=== PATIENT | male | born 1995 | race Caucasian/White ===

== ENCOUNTER 2017-08-27 02:30 | Inpatient (IN) | payer MEDICAID ==
[2017-08-27] MEDS ORDERED: ACETAMINOPHEN 325 MG TAB PO PRN (03:07)
[2017-08-27] MEDS ORDERED: MAGNESIUM HYDROXIDE 30 ML UDCUP PO PRN (03:07)
[2017-08-27] MEDS ORDERED: LORazepam 0.5 MG TAB PO PRN ×2 (03:07→13:34)
[2017-08-27] MEDS ORDERED: MAG HYDROX/AL HYDROX/SIMETH 30 ML UDCUP PO PRN (03:08)
[2017-08-27] MEDS ORDERED: OLANZapine 5 MG TAB PO PRN ×2 (03:08→13:35)
[2017-08-27] MEDS: NICOTINE POLACRILEX 2 MG GUM B PRN ×6 (13:35→23:22)
--- NOTE | 2017-08-27 13:44 | BCON ---
[f rep st] BEHAVIORAL HEALTH CONSULTATION INTERNAL MEDICINE CONSULTATION DATE OF CONSULTATION: 08/27/2017 REFERRING PHYSICIAN: Dr. Vences REASON FOR REFERRAL: Medical clearance for inpatient behavioral health stay. HISTORY OF PRESENT ILLNESS: This patient was brought to the [facility] Emergency Department on an M1 hold from a mental health clinic where he was noted to be floridly psychotic with homicidal and suicidal ideation. He had been noncompliant with his psychiatric medications. He was evaluated by the mental health team and transfer was arranged to [facility] inpatient rehabilitation. He currently has no acute complaints. PAST MEDICAL HISTORY: He denies any history of medical illnesses. He has a diagnosis of schizoaffective disorder. PAST SURGICAL HISTORY: He denies any surgeries. MEDICATIONS: He was prescribed Seroquel, but apparently has been noncompliant for several weeks. ALLERGIES: There are no known drug allergies. SOCIAL HISTORY: He lives in an apartment with a [employer]-supplied therapeutic roommate. He is a smoker. He has not attempted to quit smoking. He has occasional substance abuse including marijuana, LSD, and alcohol. FAMILY HISTORY: Noncontributory for the purpose of this evaluation. REVIEW OF SYSTEMS: A 10-point review of systems was conducted and was negative. PHYSICAL EXAM: VITAL SIGNS: Blood pressure is 132/60, heart rate is 78, respiratory rate 16, oxygen saturation is 96% on room air, temperature is 36.6 degrees centigrade. His weight is 63.5 kg for a body mass index of 22.6. GENERAL: This is a somewhat unkempt man. Appears his chronologic age. Wearing hospital scrubs. Cooperative and in no acute distress. HEENT: Extraocular movements are intact. Pupils are equal, round, reactive to light. Mucous membranes are moist. Dentition is in good condition. NECK: Supple. HEART: Regular rate and rhythm with no murmurs, rubs, or gallops. LUNGS: Clear to auscultation bilaterally. ABDOMEN: Benign. EXTREMITIES: There is no cyanosis or clubbing. NEUROLOGIC: He is alert. Orientation was not tested. Cranial nerves 2-12 are grossly intact. There is no focal weakness and sensation is intact to light touch. LABORATORY STUDIES: From the [facility] emergency department. CBC and BMP were normal. Urine tox screen was negative for any substances of abuse. ASSESSMENT/RECOMMENDATIONS: 1. Tobacco dependence syndrome. He was encouraged to quit smoking. 2. Otherwise normal exam. I see no medical contraindications to this patient's continued stay in the inpatient behavioral health unit or to any psychiatric medications or procedures. Thank you very much for including me in the care of this patient and please do not hesitate to contact me or the hospitalist service should there be need for further medical evaluation. /[id number]/MODL MTDD
[2017-08-27] MEDS ORDERED: RISPERIDONE 2 MG ODT TAB SL PRN (13:52)
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
[2017-08-27] MEDS: RISPERIDONE 2 MG ODT TAB SL SCH (20:06)
[2017-08-28] MEDS: NICOTINE POLACRILEX 2 MG GUM B PRN ×3 (07:38→17:45)
[2017-08-28] MEDS: RISPERIDONE 2 MG ODT TAB SL SCH ×2 (08:09→20:07)
--- NOTE | 2017-08-28 11:45 | SOAPPROG ---
SOAP Progress Note Assessment/Plan: Assessment: Schizophrenia Violent threats prior to admission Patient admitted on M-1 for paranoia, AH, disorganization, agitation, and violent threats. Patient has a history of prior psychiatric hospitalizations and [place]; was non-compliant with antipsychotic medications despite extensive support from [facility]. Plan: Short Term Certification Court Ordered Medication petition submitted Monitor behavior, psychotic symptoms, risk of violence Continue Risperdal Mtab 2mg SL BID 08/28/17 11:46 Subjective: CC: "Better" Patient unable to explain recent events or reason for hospitalizations. Denies sending emails to [employer], sending threatening email to father, or threatening [facility] staff. Denies feeling stiff or slow. Reports sleeping well. Denies paranoia. Endorses AH of multiple voices but unable to explain content, denies command AH. Denies feeling hopeless or suicidal. Denies feeling agitated or violent. Objective: Vital Signs Temp Pulse Resp BP Pulse Ox 36.4 C 86 16 124/69 H 96 08/28/17 01:41 08/28/17 01:41 08/28/17 01:41 08/28/17 01:41 08/28/17 01:41 Laboratory Results 08/28/17 06:50 Tired WM, resting in bed. Speech RRR. No cogwheel rigidity. Mood 'better.' Affect restricted. Thoughts brief with poverty of detail/content. Denies SI or HI or paranoia but unable to explain recent symptoms. Endorses AH, describes multiple voices but unable to explain content, denies command AH. Unable to explain diagnosis or risks/benefits of medication. No insight. Questionable judgment. Patient was agitated and disorganized and irritable last night on unit but cooperative with scheduled Risperdal Mtab BID and got PRN ativan 1mg this AM prior to blood draw. BMP WNL (glucose 78); LFts WNL; TG 208, HDL 43, LDL 69, TSH 1.9, HgbA1c 5.2. - Time Spent With Patient Time Spent With Patient: 15 minutes - Pending Discharge Pending Discharge Within 24 Hours: No Pending Discharge Within 48 Hours: No ICD10 Worksheet Patient Problems: Problems Problem Status Onset Nicotine dependence Acute Noncompliance Acute Schizophrenia Acute Thoughts of violence Acute
[2017-08-29] MEDS: NICOTINE POLACRILEX 2 MG GUM B PRN ×4 (07:46→19:19)
[2017-08-29] MEDS: RISPERIDONE 2 MG ODT TAB SL SCH ×2 (07:46→20:52)
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
[2017-08-30] MEDS: RISPERIDONE 2 MG ODT TAB SL SCH ×2 (09:05→18:17)
[2017-08-30] MEDS: OMEGA-3 FATTY ACIDS 1,000 MG CAP PO SCH (09:05)
[2017-08-30] MEDS: NICOTINE POLACRILEX 2 MG GUM B PRN (11:47)
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
[2017-08-30] MEDS: NICOTINE 14 MG/24 HR PATCH TD SCH (14:56)
[2017-08-31] MEDS: OMEGA-3 FATTY ACIDS 1,000 MG CAP PO SCH (08:06)
[2017-08-31] MEDS: RISPERIDONE 2 MG ODT TAB SL SCH ×2 (08:07→21:07)
[2017-08-31] MEDS: NICOTINE 14 MG/24 HR PATCH TD SCH (08:07)
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
[2017-08-31] MEDS ORDERED: NICOTINE POLACRILEX 2 MG GUM B ONE (21:22)
[2017-09-01] MEDS: OMEGA-3 FATTY ACIDS 1,000 MG CAP PO SCH (08:28)
[2017-09-01] MEDS: RISPERIDONE 2 MG ODT TAB SL SCH ×2 (08:28→19:04)
[2017-09-01] MEDS: NICOTINE 14 MG/24 HR PATCH TD SCH (08:28)
--- NOTE | 2017-09-01 09:05 | SOAPPROG ---
SOAP Progress Note Assessment/Plan: Assessment: Schizophrenia Violent threats prior to admission Mild elevation in Triglycerides Patient admitted on M-1 for paranoia, AH, disorganization, agitation, and violent threats. Patient has a history of prior psychiatric hospitalizations and [place]; was non-compliant with antipsychotic medications prior to admission despite extensive support from [facility] program. Patient denies past suicide attempts or violence toward others or access to a gun. Patient appears calm and denies dangerous thoughts but has poor insight and negative symptoms. Mild EPS with Risperidone 4mg/day Plan: Short Term Certification Court Ordered Medication petition submitted Monitor behavior, psychotic symptoms, risk of violence Reduce Risperdal Mtab 2mg QHS Start Invega Sustenna 156mg IM, first dose in AM Safety precautions (15 minute checks) and Assault Awareness precaution Fish Oil daily Coordinate discharge planning with Tyra 09/01/17 09:04 Subjective: CC: "Great" Patient unable to explain reasons for admission or diagnosis. Agrees to continue medication but wants discharge. Agrees to Invega Sustenna injection. Reports feeling tired and slowed 'off and on.' Denies stiffness. Denies severe mood swings or agitation. Objective: Vital Signs Temp Pulse Resp BP Pulse Ox 36.4 C 68 16 110/59 L 95 09/01/17 06:00 09/01/17 06:00 09/01/17 06:00 09/01/17 06:00 09/01/17 06:00 Laboratory Results 08/28/17 06:50 Alert WM. Mild cogwheeling, slowing. Speech RRR few words. Mood 'great' affect restricted. Thoughts organized but poverty of detail. Denies SI or HI. Denies AH or paranoia. Limited/poor insight. Questionable judgment. Staff report patient quiet, isolative on unit. - Time Spent With Patient Time Spent With Patient: 15 minutes - Pending Discharge Pending Discharge Within 24 Hours: No Pending Discharge Within 48 Hours: No ICD10 Worksheet Patient Problems: Problems Problem Status Onset Nicotine dependence Acute Noncompliance Acute Schizophrenia Acute Thoughts of violence Acute
[2017-09-01] MEDS ORDERED: RISPERIDONE 2 MG ODT TAB SL PRN (14:00)
[2017-09-01] MEDS: hydrOXYzine HCL 25 MG TAB PO PRN (19:04)
[2017-09-02] MEDS: OMEGA-3 FATTY ACIDS 1,000 MG CAP PO SCH (07:42)
[2017-09-02] MEDS: NICOTINE 14 MG/24 HR PATCH TD SCH (07:42)
--- NOTE | 2017-09-02 10:35 | SOAPPROG ---
SOAP Progress Note Assessment/Plan: Assessment: Schizophrenia Violent threats prior to admission Mild elevation in Triglycerides Patient admitted on M-1 for paranoia, AH, disorganization, agitation, and violent threats. Patient has a history of prior psychiatric hospitalizations and [place]; was non-compliant with antipsychotic medications prior to admission despite extensive support from [facility]. Patient denies past suicide attempts or violence toward others or access to a gun. Patient appears calm and denies dangerous thoughts but has poor insight and negative symptoms. Plan: Short Term Certification Patient stipulated for court ordered medications Continue Risperdal Mtab 2mg QHS Hydroxyzine 25mg [id number] PRN anxiety or insomnia or EPS Start Invega Sustenna 156mg IM, first dose today 09/02/17 Safety precautions (15 minute checks) and Assault Awareness precaution Fish Oil daily Coordinate discharge planning with [facility] 09/02/17 10:31 Subjective: CC: "Alright" Patient denies stiffness or tremors or feeling slow. Denies feeling sedated or having difficulty with urination or constipation. Agrees to Invega Sustenna injections but wants to be discharged. Unable to explain reasons for hospitalization. Denies paranoia about police or government or chemical poisonings. Denies AH. Denies violent or suicidal thoughts. Agreeable to work with [facility] after hospital discharge. Objective: Vital Signs Temp Pulse Resp BP Pulse Ox 36.4 C 68 16 110/59 L 95 09/01/17 06:00 09/01/17 06:00 09/01/17 06:00 09/01/17 06:00 09/01/17 06:00 Laboratory Results 08/28/17 06:50 Tired WM. Calm and cooperative. Affect briefly irritable. Thoughts briefly organized with poverty of detail/content. Denies SI or HI or AH or paranoia. Mood 'alright'. Speech RRR, few words. Limited/poor insight. Judgment questionable. Staff report patient slept 8 hours, took Hydroxyzine 25mg at bedtime. Patient isolative, briefly irritable on unit without dangerous behaviors or statements. - Time Spent With Patient Time Spent With Patient: 10 minutes - Pending Discharge Pending Discharge Within 24 Hours: No Pending Discharge Within 48 Hours: No ICD10 Worksheet Patient Problems: Problems Problem Status Onset Nicotine dependence Acute Noncompliance Acute Schizophrenia Acute Thoughts of violence Acute
[2017-09-02] MEDS ORDERED: PALIPERIDONE PALMITATE 156 MG/ML SYR IM ONE (11:00)
[2017-09-02] MEDS: NICOTINE POLACRILEX 2 MG GUM B PRN ×3 (17:15→22:02)
[2017-09-02] MEDS: RISPERIDONE 2 MG ODT TAB SL SCH (18:56)
[2017-09-02] MEDS ORDERED: hydrOXYzine HCL 25 MG TAB PO SCH (21:00)
[2017-09-03] MEDS: hydrOXYzine HCL 25 MG TAB PO PRN (05:22)
[2017-09-03] MEDS: NICOTINE POLACRILEX 2 MG GUM B PRN (06:58)
[2017-09-03] MEDS: OMEGA-3 FATTY ACIDS 1,000 MG CAP PO SCH (08:05)
--- NOTE | 2017-09-03 08:07 | SOAPPROG ---
SOAP Progress Note Assessment/Plan: Assessment: Schizophrenia Violent threats prior to admission Mild elevation in Triglycerides Patient admitted on M-1 for paranoia, AH, disorganization, agitation, and violent threats. Patient has a history of prior psychiatric hospitalizations and [place]; was non-compliant with antipsychotic medications prior to admission despite extensive support from [facility] program. Patient denies past suicide attempts or violence toward others or access to a gun. Patient appears calm and denies dangerous thoughts but has poor insight. Plan: Short Term Certification Patient stipulated for court ordered medications Continue Risperdal Mtab 2mg QHS Hydroxyzine 25mg [id number] PRN anxiety or insomnia or EPS Patient received first Invega Sustenna 156mg IM on 09/02/17 Safety precautions (15 minute checks) and Assault Awareness precaution Fish Oil daily Coordinate discharge planning with [facility], planned discharge 09/09/17 after 2nd Invega Sustenna injection 09/03/17 08:07 Subjective: CC: "ready to go" Patient reports wanting discharge home to apartment. Agreeable to continue Invega Sustenna injections as an outpatient and cooperate with [facility] team. REports he feels that he is 'innocent, just a sacrifice so you can make money off me by keeping me here.' Denies paranoia regarding chemicals, poisonings. Denies feeling irritable or having violent thoughts. Denies stiffness, tremors , or slowing. Denies feeling hopeless or suicidal. Objective: Vital Signs Temp Pulse Resp BP Pulse Ox 36.2 C 76 16 114/75 95 09/03/17 06:00 09/03/17 06:00 09/03/17 06:00 09/03/17 06:00 09/03/17 06:00 Laboratory Results 08/28/17 06:50 ALert WM. Speech RRR. Mood 'ready to go.' Affect briefly irritable. Thoughts briefly organized with limited information. No tremors or weakness. Some paranoid content 'I'm an innocent victim being sacrified so you can make money.' No insight. Questionable judgment. Staff report patient compliant with Invega Sustenna injection yesterday and SL Risperdal last night. Took PRN Hydroxyzine 25mg for anxiety yesterday. Isolative to room, able to attend some groups. - Time Spent With Patient Time Spent With Patient: 15 minutes - Pending Discharge Pending Discharge Within 24 Hours: No Pending Discharge Within 48 Hours: No ICD10 Worksheet Patient Problems: Problems Problem Status Onset Nicotine dependence Acute Noncompliance Acute Schizophrenia Acute Thoughts of violence Acute
[2017-09-03] MEDS: NICOTINE 14 MG/24 HR PATCH TD SCH (08:14)
[2017-09-03] MEDS: SODIUM CL NASAL 45 ML BTL EACHNARE PRN (13:23)
[2017-09-03] MEDS: RISPERIDONE 2 MG ODT TAB SL SCH (20:08)
[2017-09-03] MEDS: CETIRIZINE 10 MG TAB PO SCH (20:09)
[2017-09-04] MEDS: NICOTINE 14 MG/24 HR PATCH TD SCH (09:07)
[2017-09-04] MEDS: OMEGA-3 FATTY ACIDS 1,000 MG CAP PO SCH (09:07)
[2017-09-04] MEDS: NICOTINE POLACRILEX 2 MG GUM B PRN ×2 (09:54→12:22)
[2017-09-04] MEDS: SODIUM CL NASAL 45 ML BTL EACHNARE PRN (10:07)
--- NOTE | 2017-09-04 10:34 | SOAPPROG ---
SOAP Progress Note Assessment/Plan: Assessment: Schizophrenia Violent threats prior to admission Mild elevation in Triglycerides Patient admitted on M-1 for paranoia, AH, disorganization, agitation, and violent threats. Patient has a history of prior psychiatric hospitalizations and [place]; was non-compliant with antipsychotic medications prior to admission despite extensive support from [facility] program. Patient denies past suicide attempts or violence toward others or access to a gun. Patient appears irritable today with some paranoia but denies violent or suicidal thoughts, has poor insight. Plan: Short Term Certification Patient stipulated for court ordered medications Increase Risperdal Mtab 4mg QHS Hydroxyzine 25mg [id number] PRN anxiety or insomnia or EPS Patient received first Invega Sustenna 156mg IM on 09/02/17 Plan second Invega Sustenna injection 156mg IM on Friday Safety precautions (15 minute checks) and Assault Awareness precaution Fish Oil daily Coordinate discharge planning with [facility] Team, planned discharge 09/09/17 after 2nd Invega Sustenna injection Requested healthcare technician and pharmacist enroll patient in [facility] [employer] Patient Assistance Program Provided education about Schizophrenia Monitor irritability 09/04/17 10:35 Subjective: CC: "I want to get the shot outpatient" Patient reports sleeping well but feeling agitated due to not wanting to be in the hospital. Reports concerns about being poisoned. Unable to give details. Denies violent or suicidal thoughts. Denies stiffness or tremors. Denies feeling hopeless or suicidal. Agrees to work with [facility] team regarding discharge planning. Objective: Vital Signs Temp Pulse Resp BP Pulse Ox 36.2 C 76 16 114/75 95 09/03/17 06:00 09/03/17 06:00 09/03/17 06:00 09/03/17 06:00 09/03/17 06:00 Laboratory Results 08/28/17 06:50 Alert WM. No stiffness or tremors. Speech RRR, brief yelling. Irritable affect. Mood 'fine.' Thoughts briefly organized with poverty of detail. Some paranoia about being poisoned. Denies SI or HI. Denies AH. Poor insight. Staff report patient slept 7 hours, took PRN Hydroxyzine for anxiety; briefly irritable and paranoid at times but able to attend some groups. - Time Spent With Patient Time Spent With Patient: 15 minutes - Pending Discharge Pending Discharge Within 24 Hours: No Pending Discharge Within 48 Hours: No ICD10 Worksheet Patient Problems: Problems Problem Status Onset Nicotine dependence Acute Noncompliance Acute Schizophrenia Acute Thoughts of violence Acute
[2017-09-04] MEDS: CETIRIZINE 10 MG TAB PO SCH (18:36)
[2017-09-04] MEDS: RISPERIDONE 2 MG ODT TAB SL SCH (18:37)
[2017-09-05] MEDS: OMEGA-3 FATTY ACIDS 1,000 MG CAP PO SCH (10:42)
[2017-09-05] MEDS: NICOTINE 14 MG/24 HR PATCH TD SCH (10:43)
[2017-09-05] MEDS: NICOTINE POLACRILEX 2 MG GUM B PRN ×2 (10:48→12:32)
--- NOTE | 2017-09-05 12:56 | SOAPPROG ---
SOAP Progress Note Assessment/Plan: Assessment: Schizophrenia Violent threats prior to admission Mild elevation in Triglycerides Patient admitted on M-1 for paranoia, AH, disorganization, agitation, and violent threats. Patient has a history of prior psychiatric hospitalizations and [place]; was non-compliant with antipsychotic medications prior to admission despite extensive support from [facility] program. Patient appears calm but no insight. Plan: Short Term Certification Patient stipulated for court ordered medications Risperdal Mtab 4mg QHS Hydroxyzine 25mg [id number] PRN anxiety or insomnia or EPS Patient received first Invega Sustenna 156mg IM on 09/02/17 Plan second Invega Sustenna injection 156mg IM on Friday Safety precautions (15 minute checks) and Assault Awareness precaution Fish Oil daily Coordinate discharge planning with [facility] Team, planned discharge 09/09/17 after 2nd Invega Sustenna injection 09/05/17 13:01 Subjective: CC: "I'm OK" Patient reports overall feeling stable. Denies paranoia about poison gas. Denies any thoughts about the Holocaust or Hitler. Denies any violent thoughts toward his father or toward [employer] staff. Denies access to a gun. Reports overall feeling stable. Denies stiffness or tremors or restlessness. Objective: Vital Signs Temp Pulse Resp BP Pulse Ox 36.4 C 52 L 20 87/51 L 94 09/05/17 06:00 09/05/17 06:00 09/05/17 06:00 09/05/17 06:00 09/05/17 06:00 Laboratory Results 08/28/17 06:50 Alert WM. No tremors or weakness. Speech RRR. Mood 'OK.' Affect restricted. Thoughts organized with limited information. Denies SI or HI. Denies AH or paranoia about being poisoned. Denies any plans to hurt father or [employer] staff. Denies access to guns in the community. Insight poor. Judgment questionable. Staff report 9.5 hours. Only attends first 5-10 minutes of groups then leaves. Occasional brief irritability but no dangerous behaviors or statements. Spoke over the phone with Dr. Saxena, psychiatrist in [place]. He reports patient last seen there December 2016. Diagnosed Schizophrenia, past benefit from Invega Sustenna, chronic poor insight, recurrent non-compliance with oral medication. - Time Spent With Patient Time Spent With Patient: 15 minutes - Pending Discharge Pending Discharge Within 24 Hours: No Pending Discharge Within 48 Hours: No ICD10 Worksheet Patient Problems: Problems Problem Status Onset Nicotine dependence Acute Noncompliance Acute Schizophrenia Acute Thoughts of violence Acute
[2017-09-05] MEDS: SODIUM CL NASAL 45 ML BTL EACHNARE PRN (13:55)
[2017-09-05] MEDS: LORazepam 0.5 MG TAB PO PRN (14:46)
[2017-09-05] MEDS: CETIRIZINE 10 MG TAB PO SCH (20:10)
[2017-09-05] MEDS: RISPERIDONE 2 MG ODT TAB SL SCH (20:11)
[2017-09-06] MEDS: NICOTINE 14 MG/24 HR PATCH TD SCH (07:56)
[2017-09-06] MEDS: OMEGA-3 FATTY ACIDS 1,000 MG CAP PO SCH (08:23)
[2017-09-06] MEDS: NICOTINE POLACRILEX 2 MG GUM B PRN ×4 (09:13→19:10)
[2017-09-06] MEDS: LORazepam 0.5 MG TAB PO PRN (12:41)
[2017-09-06] MEDS: hydrOXYzine HCL 25 MG TAB PO PRN (13:55)
[2017-09-06] MEDS: SODIUM CL NASAL 45 ML BTL EACHNARE PRN (15:31)
--- NOTE | 2017-09-06 16:57 | SOAPPROG ---
SOAP Progress Note Assessment/Plan: Assessment: Per Dr. Saravia's notes: Assessment/Plan: Assessment: Schizophrenia Violent threats prior to admission Mild elevation in Triglycerides Patient admitted on M-1 for paranoia, AH, disorganization, agitation, and violent threats. Patient has a history of prior psychiatric hospitalizations and [place]; was non-compliant with antipsychotic medications prior to admission despite extensive support from [facility]. Patient appears calm but no insight. Plan: Short Term Certification Patient stipulated for court ordered medications Risperdal Mtab 4mg QHS Hydroxyzine 25mg [id number] PRN anxiety or insomnia or EPS Patient received first Invega Sustenna 156mg IM on 09/02/17 Plan second Invega Sustenna injection 156mg IM on Friday Safety precautions (15 minute checks) and Assault Awareness precaution Fish Oil daily Coordinate discharge planning with [facility] Team, planned discharge 09/09/17 after 2nd Invega Sustenna injection 09/06/17 16:[address] 2. Stipulated to [facility] 3. 1st Invega injection on 09/02/17 4. Next Invega IM on 09/09/17 5. Less paranoid and psychotic Subjective: Met with patient, reviewed chart and d/w staff. Patient presents with more elevated mood and pressured speech than last weekend. However, he denies hallucinations and appears less paranoid. He wrote "I'm bored" on his arm with black marker. Patient is talking about wanting to go back to film school in [place] for music production. MD and CC asks how long he plans to stay in [place] and receive treatment at [facility]. He says, "maybe a couple months...I don't know, maybe my dad will make me stay here forever." Objective: Vital Signs Temp Pulse Resp BP Pulse Ox 36.4 C 95 14 127/79 H 96 09/06/17 06:00 09/06/17 06:00 09/06/17 06:00 09/06/17 06:00 09/06/17 06:00 Laboratory Results 08/28/17 06:50 MSE: Mood: "Great" but "bored" Affect: Elevated TP: Loose TC: Grandiose, no SI/HI, denies any hallucinations, less paranoid Insight/Judgment: Poor - Time Spent With Patient Time Spent With Patient: 20" - Pending Discharge Pending Discharge Within 24 Hours: No Pending Discharge Within 48 Hours: No ICD10 Worksheet Patient Problems: Problems Problem Status Onset Nicotine dependence Acute Noncompliance Acute Schizophrenia Acute Thoughts of violence Acute
[2017-09-06] MEDS: RISPERIDONE 2 MG ODT TAB SL SCH (18:53)
[2017-09-06] MEDS: CETIRIZINE 10 MG TAB PO SCH (18:54)
[2017-09-07] MEDS: NICOTINE 14 MG/24 HR PATCH TD SCH (07:13)
[2017-09-07] MEDS: OMEGA-3 FATTY ACIDS 1,000 MG CAP PO SCH (08:30)
[2017-09-07] MEDS: NICOTINE POLACRILEX 2 MG GUM B PRN ×2 (10:50→21:00)
[2017-09-07] MEDS: LORazepam 0.5 MG TAB PO PRN (12:33)
--- NOTE | 2017-09-07 14:09 | SOAPPROG ---
SOAP Progress Note Assessment/Plan: Assessment: Per Dr. Saravia's notes: Assessment/Plan: Assessment: Schizophrenia Violent threats prior to admission Mild elevation in Triglycerides Patient admitted on M-1 for paranoia, AH, disorganization, agitation, and violent threats. Patient has a history of prior psychiatric hospitalizations and [place]; was non-compliant with antipsychotic medications prior to admission despite extensive support from [facility]. Patient appears calm but no insight. Plan: Short Term Certification Patient stipulated for court ordered medications Risperdal Mtab 4mg QHS Hydroxyzine 25mg [id number] PRN anxiety or insomnia or EPS Patient received first Invega Sustenna 156mg IM on 09/02/17 Plan second Invega Sustenna injection 156mg IM on Friday Safety precautions (15 minute checks) and Assault Awareness precaution Fish Oil daily Coordinate discharge planning with [facility] Team, planned discharge 09/09/17 after 2nd Invega Sustenna injection 09/06/17 16:53 1. On STC 2. Stipulated to COM 3. 1st Invega injection on 09/02/17 4. Next Invega IM on 09/09/17 5. Less paranoid and psychotic 09/07/17 14:06 1. STC and COM 2. Will receive Invega Sustenna on Friday 3. Likely to d/c after Invega injection, f/u with [facility] Subjective: Met with patient, reviewed chart and d/w staff. When MD met with patient, he was polite, cooperative and pleasant. He says "thank you sir" several times. However, staff report he has been very irritable with SOC and FOC. His SOC came to visit last night and patient became angry and told her to "fuck off" when she left. He had got angry during phone conversation with his FOC and his FOC hung up on him. Patient took Ativan and hydroxyzine for agitation PRN yesterday , but has not needed any today. Objective: Vital Signs Temp Pulse Resp BP Pulse Ox 36.4 C 111 H 16 121/72 H 95 09/06/17 06:00 09/07/17 08:00 09/07/17 08:00 09/07/17 08:00 09/07/17 08:00 Laboratory Results 08/28/17 06:50 MSE: Mood: "Fine" Affect: Euthymic w/ MD, but has been angry and irritable with family TP: Linear TC: No SI/HI, denies any psychotic sxs Insight/ Judgment: poor - Time Spent With Patient Time Spent With Patient: 20" - Pending Discharge Pending Discharge Within 24 Hours: No Pending Discharge Within 48 Hours: No ICD10 Worksheet Patient Problems: Problems Problem Status Onset Nicotine dependence Acute Noncompliance Acute Schizophrenia Acute Thoughts of violence Acute
[2017-09-07] MEDS: RISPERIDONE 2 MG ODT TAB SL SCH (20:49)
[2017-09-07] MEDS: CETIRIZINE 10 MG TAB PO SCH (20:49)
[2017-09-08] MEDS: OMEGA-3 FATTY ACIDS 1,000 MG CAP PO SCH (08:50)
[2017-09-08] MEDS: NICOTINE 14 MG/24 HR PATCH TD SCH (08:50)
[2017-09-08] MEDS: LORazepam 0.5 MG TAB PO PRN ×2 (10:48→18:37)
--- NOTE | 2017-09-08 12:00 | SOAPPROG ---
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 Patient has a history of prior psychiatric hospitalizations and [place]; was non-compliant with antipsychotic medications prior to admission despite extensive support from [facility] program. Patient is sleeping well on unit and calm in groups but has explosive agitation when discussing diagnosis, treatment plan and has been hostile and yelling on phone with father and was profane and agitated over the weekend while meeting with sister. Patient has no insight. Plan: Short Term Certification Patient stipulated for court ordered medications Increase Risperdal Mtab 1mg QAM and 4mg QHS Patient received first Invega Sustenna 156mg IM on 09/02/17 Increase/change Invega Sustenna injection 234mg IM on Friday Safety precautions (15 minute checks) and Assault Awareness precaution Education about Schizophrenia Coordinate discharge planning with [facility] Team Discussed with patient that he will need to have a calm family meeting with sister to review discharge planning prior to discharge. 09/08/17 12:01 Subjective: CC: "I don't fucking need to be here" Patient reports sleeping well. Denies mood swings or agitation but yells at this M.D. Denies stiffness or slowing. Unable to explain why he was yelling on phone with father or profane and agitated with sister over the weekend. Unwilling to try Depakote for agitation 'I took it before, it slowed me down and made my mind .' Denies paranoia and AH and violent threats prior to or during admission. Reports he doesn't believe he has a mental illness and shouldn't be diagnosed with Schizophrenia 'you should take it off my medical record.' Reports he is willing to take medications after discharge 'only so I can get out of here.' Agrees to have a discharge family meeting with [facility] staff and sister. Objective: Vital Signs Temp Pulse Resp BP Pulse Ox 36.4 C 88 16 113/58 L 97 09/06/17 06:00 09/07/17 20:51 09/07/17 20:51 09/07/17 20:51 09/07/17 20:51 Laboratory Results 08/28/17 06:50 Alert WM. Initially calm in group. Speech RRR, brief yelling with agitation. Mood 'upset because I don't need to be here.' Affect irritable and angry at times. Thoughts briefly organized with limited detail. Denies SI or HI or AH or paranoia. Reports he doesn't believe he has a mental illness, denies AH or paranoia or violent thoughts prior to or during admission. No insight. Questionable judgment. Staff report over weekend patient was yelling and screaming at father on phone numerous times; was irritable and profane during visit by sister. Staff report patient slept 8 hours overnight, attending groups. - Time Spent With Patient Time Spent With Patient: 15 minutes - Pending Discharge Pending Discharge Within 24 Hours: No Pending Discharge Within 48 Hours: No ICD10 Worksheet Patient Problems: Problems Problem Status Onset Intermittent explosive disorder Acute Nicotine dependence Acute Noncompliance Acute Thoughts of violence Acute Schizophrenia Acute
[2017-09-08] MEDS: NICOTINE POLACRILEX 2 MG GUM B PRN ×2 (13:44→16:15)
[2017-09-08] MEDS: RISPERIDONE 1 MG ODT TAB SL PRN (14:53)
--- NOTE | 2017-09-08 17:11 | HOSPPROG ---
Hospitalist Progress Note Assessment/Plan: STI screening- revwd exposure risks and sxs of common STIs, recommended condom use for prevention. HIV/Hep C/RPR/gc/ct ordered- all negative. Consider oral and anal swabs in future depending upon risk assessment. Please contact hospitalist service with any further concerns. Thank you for allowing us to participate in his care. Subjective: Request for STI screening. He says he has never had anal or vaginal intercourse with men or women, but he is very concerned and 'just wants to be screened...because it is around' He denies oral lesions, pain with urination, penile discharge or lesions. He declines genital exam today. Objective: Vital Signs Temp Pulse Resp BP Pulse Ox 97.6 F 88 16 113/58 L 97 09/06/17 06:00 09/07/17 20:51 09/07/17 20:51 09/07/17 20:51 09/07/17 20:51 Laboratory Results 08/28/17 06:50 - Physical Exam Constitutional: other (cooperative) ICD10 Worksheet Patient Problems: Problems Problem Status Onset Intermittent explosive disorder Acute Nicotine dependence Acute Noncompliance Acute Schizophrenia Acute Thoughts of violence Acute
[2017-09-08] MEDS: CETIRIZINE 10 MG TAB PO SCH (20:56)
[2017-09-08] MEDS: RISPERIDONE 2 MG ODT TAB SL SCH (20:57)
[2017-09-09] MEDS ORDERED: RISPERIDONE 1 MG ODT TAB SL SCH (09:00)
[2017-09-09] MEDS: OMEGA-3 FATTY ACIDS 1,000 MG CAP PO SCH (10:10)
[2017-09-09] MEDS: NICOTINE POLACRILEX 2 MG GUM B PRN ×5 (10:11→18:29)
[2017-09-09] MEDS: NICOTINE 14 MG/24 HR PATCH TD SCH (10:14)
[2017-09-09] MEDS ORDERED: PALIPERIDONE PALMITATE 234 MG/1.5 ML SYR IM ONE (11:00)
[2017-09-09] MEDS ORDERED: PALIPERIDONE PALMITATE 156 MG/ML SYR IM ONE (11:00)
--- NOTE | 2017-09-09 11:08 | SOAPPROG ---
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 Patient has a history of prior psychiatric hospitalizations and [place]; was non-compliant with antipsychotic medications prior to admission despite extensive support from [facility] program. Patient has no insight but agrees to Invega Sustenna injection. Patient was agitated and yelling at father and insurance defense attorney on phone and sister during visit, 09/06-09/08, but appears more calm today. Plan: Short Term Certification Patient stipulated for court ordered medications, but now requesting hearing scheduled 09/10 @ 3:30PM to obtain discharge Continue Risperdal Mtab 1mg QAM and 4mg QHS Patient received first Invega Sustenna 156mg IM on 09/02/17 Patient agrees to Invega Sustenna injection 234mg IM today 09/09/17 Safety precautions (15 minute checks) and Assault Awareness precaution Education about Schizophrenia Discussed with patient that he will need to have a calm family meeting with sister and [facility] to review discharge planning prior to discharge. 09/09/17 11:08 Subjective: CC: "Upset that I'm here" Patient reports sleeping well. Reports past benefit from Invega Sustenna injections and willing to take but doesn't want to be in the hospital. Denies that he was yelling repeatedly on phone to father and com writer over past 4 days. Denies yelling profanity at sister over weekend. Reports he doesn't believe he has mental illness and only willing to take Invega injection to facilitate discharge. 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 Objective: Vital Signs Temp Pulse Resp BP Pulse Ox 36.7 C 84 17 133/83 H 96 09/08/17 19:08 09/08/17 19:08 09/08/17 19:08 09/08/17 19:08 09/08/17 19:08 Laboratory Results 08/28/17 06:50 alert WM, ambulatory without tremors or weakness or slowing. Speech RRR, brief yelling. Mood 'upset that I'm here.' Affect briefly irritable. Thoughts briefly organized with little detail. Some grandiosity regarding opening a record studio with father. No insight. Denies SI or HI or AH. poor judgment. Staff report patient slept 10 hours. Briefly irritable with staff but cooperative with medication and groups. - Time Spent With Patient Time Spent With Patient: 15 minutes - Pending Discharge Pending Discharge Within 24 Hours: No Pending Discharge Within 48 Hours: No ICD10 Worksheet Patient Problems: Problems Problem Status Onset Intermittent explosive disorder Acute Nicotine dependence Acute Noncompliance Acute Schizophrenia Acute Thoughts of violence Acute
[2017-09-09 11:20] LABS: HEPATITIS C ANTIBODY TOTAL NEGATIVE (NEGATIVE); HIV TYPE 1 AND 2 NEGATIVE (NEGATIVE)
[2017-09-09 11:59] LABS: GC AMPLIFICATION GENPROBE NEGATIVE (NEGATIVE)
[2017-09-09] MEDS: SODIUM CL NASAL 45 ML BTL EACHNARE PRN (12:03)
[2017-09-09] MEDS: LORazepam 0.5 MG TAB PO PRN (13:25)
[2017-09-09] MEDS: RISPERIDONE 2 MG ODT TAB SL SCH ×2 (19:09→20:41)
[2017-09-09] MEDS: CETIRIZINE 10 MG TAB PO SCH (19:09)
[2017-09-09] MEDS: RISPERIDONE 1 MG ODT TAB SL PRN (20:41)
--- NOTE | 2017-09-10 08:32 | SOAPPROG ---
SOAP Progress Note Assessment/Plan: Assessment: Schizophrenia Intermittent Explosive DO versus Schizoaffective DO bipolar type Violent threats prior to admission Mild elevation in Triglycerides - on fish oil No insight Patient admitted on M-1 for paranoia, AH, disorganization, agitation, and violent threats. Patient has a history of prior psychiatric hospitalizations and [place]; was non-compliant with antipsychotic medications prior to admission despite extensive support from [facility]. Patient was agitated and yelling at father and religion department chair on phone and sister during visit, 09/06-09/08. Plan: Short Term Certification and court ordered medication hearing today 09/10/17 Patient received Invega Sustenna injections 09/02/17 and 09/09/17 Reduce Risperdal Mtab 2mg QHS Education about Schizophrenia and benefit of treatment 09/10/17 08:28 Subjective: CC: "don't want to be here" Patient unable to explain why he is in the hospital. Reports he doesn't think he has mental illness and doesn't want psychiatric medication. Reports he has not worked a steady job 'ever.' Reports father is paying for his apartment but unable to explain how he would obtain housing if not for his support other than 'maybe work in a [employer] shop.' Denies paranoia or agitation or violent thoughts toward father or family or [facility] staff. Reports he is willing to take Invega Sustenna injections on an outpatient basis. Refused Risperdal last night due to feeling slowed. Willing to take a lower dose as part of a taper. Denies stiffness or tremors. Objective: Vital Signs Temp Pulse Resp BP Pulse Ox 36.7 C 82 14 114/64 96 09/09/17 13:26 09/09/17 20:48 09/09/17 20:48 09/09/17 20:48 09/09/17 20:48 Laboratory Results 08/28/17 06:50 Alert WM, brief irritable affect. Mood 'don't want to be here.' Speech RRR, few words. Thoughts briefly organized but illogical at times with minimal information. Denies SI or HI or AH or paranoia. Poor insight/judgment. Staff report patient refused HS Risperdal yesterday but cooperated with Invega Sustenna injection. - Time Spent With Patient Time Spent With Patient: 10 minutes - Pending Discharge Pending Discharge Within 24 Hours: No Pending Discharge Within 48 Hours: No ICD10 Worksheet Patient Problems: Problems Problem Status Onset Intermittent explosive disorder Acute Nicotine dependence Acute Noncompliance Acute Schizophrenia Acute Thoughts of violence Acute
[2017-09-10] MEDS: NICOTINE 14 MG/24 HR PATCH TD SCH (10:47)
[2017-09-10] MEDS: OMEGA-3 FATTY ACIDS 1,000 MG CAP PO SCH (10:47)
[2017-09-10] MEDS: NICOTINE POLACRILEX 2 MG GUM B PRN ×4 (10:47→20:39)
[2017-09-10] MEDS ORDERED: LORazepam 2 MG/ML INJ IM PRN (17:55)
[2017-09-10] MEDS: RISPERIDONE 2 MG ODT TAB SL SCH (19:33)
[2017-09-10] MEDS: CETIRIZINE 10 MG TAB PO SCH (19:34)
[2017-09-10] MEDS: LORazepam 0.5 MG TAB PO PRN (21:14)
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
[2017-09-11] MEDS ORDERED: hydrOXYzine HCL 25 MG TAB PO PRN (11:05)
[2017-09-11] MEDS: OMEGA-3 FATTY ACIDS 1,000 MG CAP PO SCH (11:06)
[2017-09-11] MEDS ORDERED: LORazepam 2 MG/ML INJ IM PRN (11:06)
[2017-09-11] MEDS ORDERED: OLANZapine 10 MG/2 ML VIAL IM PRN (11:07)
[2017-09-11] MEDS: NICOTINE 14 MG/24 HR PATCH TD SCH (11:08)
[2017-09-11] MEDS: NICOTINE POLACRILEX 2 MG GUM B PRN ×2 (14:23→17:51)
[2017-09-11] MEDS: CETIRIZINE 10 MG TAB PO SCH (18:55)
[2017-09-11] MEDS: RISPERIDONE 2 MG ODT TAB SL SCH (18:56)
[2017-09-11] MEDS: LORazepam 0.5 MG TAB PO PRN (22:09)
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
[2017-09-12] MEDS: NICOTINE 14 MG/24 HR PATCH TD SCH (11:59)
[2017-09-12] MEDS: OMEGA-3 FATTY ACIDS 1,000 MG CAP PO SCH (12:09)
[2017-09-12] MEDS: NICOTINE POLACRILEX 2 MG GUM B PRN ×2 (12:09→13:09)
[2017-09-12] MEDS: RISPERIDONE 2 MG ODT TAB SL SCH (19:15)
[2017-09-12] MEDS: CETIRIZINE 10 MG TAB PO SCH (19:16)
[2017-09-12] MEDS: LORazepam 0.5 MG TAB PO PRN (19:18)
[2017-09-13] MEDS: NICOTINE 14 MG/24 HR PATCH TD SCH (09:19)
[2017-09-13] MEDS: OMEGA-3 FATTY ACIDS 1,000 MG CAP PO SCH (11:55)
[2017-09-13] MEDS: NICOTINE POLACRILEX 2 MG GUM B PRN ×2 (12:52→20:48)
[2017-09-13] MEDS: CETIRIZINE 10 MG TAB PO SCH (16:10)
[2017-09-13] MEDS: RISPERIDONE 2 MG ODT TAB SL SCH (20:47)
[2017-09-13] MEDS: LORazepam 0.5 MG TAB PO PRN (20:49)
--- NOTE | 2017-09-14 08:15 | SOAPPROG ---
SOAP Progress Note Assessment/Plan: Assessment: 21yo SWM w/SZA d/o on STC and c.o.meds, admitted with severe paranoia and CAH to kill others 09/13/17 15:49 per staff, slept >9hr w/e cc t/w pt's father who was trying to decide where pt would go after d/c, cc informed FOC that [facility] is where STC/COM could be continued. see note for details. On eval, pt wearing knit had, reports doing "well", attended group which was "good". affect generally appropriate to content of interview but dismissive of any MH issues. responses brief but appropriate. denied any SI or thoughts to harm others, denied any AH/VH and no evid of delusional thoughts. little insight into reason for admission or reason for medications. states he is in hosp "b/c I was not taking my meds and things were not going well", states he does not like meds b/c "they don't help" and feels s/e of "drowsy" which is why he is taking po dose at , but meds DO help only with "getting out of the psych jeffery". admits other family members think meds help with his "voices" (makes quotation sandra gesture with his hands as he says 'voices') but maintains he does not have voices, rather he has "conscious innuendo". denies any physical complaints. PLAN: continue current meds as per court order plan d/c sometime during week if continues calm, cooperative, to [place] [facility]. Objective: Vital Signs Temp Pulse Resp BP Pulse Ox 36.8 C 82 12 122/78 H 96 09/13/17 20:00 09/13/17 20:00 09/13/17 20:00 09/13/17 20:00 09/13/17 08:00 Laboratory Results 08/28/17 06:50 - Time Spent With Patient Time Spent With Patient: 25min - Pending Discharge Pending Discharge Within 24 Hours: No Pending Discharge Within 48 Hours: No ICD10 Worksheet Patient Problems: Problems Problem Status Onset Intermittent explosive disorder Acute Nicotine dependence Acute Noncompliance Acute Schizophrenia Acute Thoughts of violence Acute
[2017-09-14] MEDS: NICOTINE 14 MG/24 HR PATCH TD SCH (10:46)
[2017-09-14] MEDS: OMEGA-3 FATTY ACIDS 1,000 MG CAP PO SCH (10:46)
[2017-09-14] MEDS: RISPERIDONE 2 MG ODT TAB SL SCH (17:08)
[2017-09-14] MEDS: LORazepam 0.5 MG TAB PO PRN (17:09)
[2017-09-14] MEDS: CETIRIZINE 10 MG TAB PO SCH (17:09)
--- NOTE | 2017-09-15 01:17 | SOAPPROG ---
SOAP Progress Note Assessment/Plan: Assessment: 21yo SWM w/SZA d/o on STC and c.o.meds, admitted with severe paranoia and CAH to kill others 09/13/17 15:49 per staff, slept >9hr w/e cc t/w pt's father who was trying to decide where pt would go after d/c, cc informed FOC that [facility] is where STC/COM could be continued. see note for details. On eval, pt wearing knit had, reports doing "well", attended group which was "good". affect generally appropriate to content of interview but dismissive of any MH issues. responses brief but appropriate. denied any SI or thoughts to harm others, denied any AH/VH and no evid of delusional thoughts. little insight into reason for admission or reason for medications. states he is in hosp "b/c I was not taking my meds and things were not going well", states he does not like meds b/c "they don't help" and feels s/e of "drowsy" which is why he is taking po dose at , but meds DO help only with "getting out of the psych jeffery". admits other family members think meds help with his "voices" (makes quotation sandra gesture with his hands as he says 'voices') but maintains he does not have voices, rather he has "conscious innuendo". denies any physical complaints. PLAN: continue current meds as per court order plan d/c sometime during week if continues calm, cooperative, to CO [facility]. prob need to reinforce to father the importance of continuing STC/ COM in community due to pt hx of n/c and poor insight 09/14/17 14:10 pt slept 9hr. no behav issues per staff on eval, cooperative, casually dressed, nml speech rate/vol, walking robles during interview stating he was ready for d/c, "bored", denied feeling restless or need to pace. reports fine with IM med "as long as I'm not on a mood stabilizer". feels "fine". affect controlled, appropr range. denied any AH/vh or any thoughts to harm himself or anyone else. thoughts seemed reality-based. no overt delusional thoughts or psychosis noted. no RIS. i/j limited. denies med s/e. denied physical c/o. hoping to d/c as soon as tomorrow if possible. states he is going to groups. PLAN: cont on STC/COM plan d/c early in week if continues stable. monitor for akathisia Objective: Vital Signs Temp Pulse Resp BP Pulse Ox 36.6 C 89 12 145/80 H 96 09/14/17 22:13 09/14/17 22:13 09/14/17 22:13 09/14/17 22:13 09/14/17 08:00 Laboratory Results 08/28/17 06:50 - Time Spent With Patient Time Spent With Patient: 15min - Pending Discharge Pending Discharge Within 24 Hours: No Pending Discharge Within 48 Hours: No ICD10 Worksheet Patient Problems: Problems Problem Status Onset Intermittent explosive disorder Acute Nicotine dependence Acute Noncompliance Acute Schizophrenia Acute Thoughts of violence Acute
[2017-09-15] MEDS: NICOTINE POLACRILEX 2 MG GUM B PRN ×3 (10:36→18:35)
[2017-09-15] MEDS: OMEGA-3 FATTY ACIDS 1,000 MG CAP PO SCH (10:37)
[2017-09-15] MEDS: NICOTINE 14 MG/24 HR PATCH TD SCH (10:39)
--- NOTE | 2017-09-15 12:18 | SOAPPROG ---
SOAP Progress Note Assessment/Plan: Assessment: Schizophrenia Intermittent Explosive DO versus Schizoaffective DO bipolar type Violent threats prior to admission Mild elevation in Triglycerides - on fish oil Patient admitted on M-1 for paranoia, AH, disorganization, agitation, and violent threats including reporting command AH to get a gun. Patient has a history of prior psychiatric hospitalizations in [place]; was non-compliant with antipsychotic medications prior to admission despite extensive support from [facility]. Patient is calm this AM, improved from previous, denies psychotic symptoms, appears more organized and logical than previous. Plan: Short Term Certification Court Ordered Medication Patient received Invega Sustenna injections 09/02/17 and 09/09/17 Plan next Invega Sustenna injection on/after September 30 2017 Continue Risperdal Mtab 2mg QHS, if refused Olanzapine 5mg IM. Schedule Hydroxyzine 25mg QHS for sleep Continue Ativan 0.5mg TID PRN anxiety, if refused 0.5mg IM Education about Schizophrenia and benefit of treatment Phone conference with father in [place] or sister in [place] to discuss possible transition to [facility] if stable over next two days 09/15/17 12:20 Subjective: CC: "I'm doing good." Patient reports over weekend one visit from [facility] staff 'we played [employer]. ' Reports having good conversation with father over the phone. Reports willingness to go to residential program for monitoring after discharge. Denies violent thoughts or AH over weekend. Denies feeling stiff or restless. Reports social anxiety being around others but denies paranoia that anyone is trying to harm him. Reports sleeping well with PRN lorazepam and scheduled Risperdal. Objective: Vital Signs Temp Pulse Resp BP Pulse Ox 36.6 C 89 12 145/80 H 96 09/14/17 22:13 09/14/17 22:13 09/14/17 22:13 09/14/17 22:13 09/14/17 08:00 Laboratory Results 08/28/17 06:50 Alert WM. Occasional Restless leg movement. Speech RRR. Mood 'better' affect euthymic, mildly anxious. Thoughts organized but poverty of detail or content. Denies violent or homicidal thoughts or any thoughts of getting a gun. Denies SI or hopelessness. Denies paranoia or AH. Insight limited/poor. Judgment questionable. Staff report patient slept 9 hours with HS Lorazepam PRN and scheduled Risperdal Mtab 2mg. - Time Spent With Patient Time Spent With Patient: 15 minutes - Pending Discharge Pending Discharge Within 48 Hours: Yes Pending Discharge Date: 09/17/17 Pending Discharge Time: 11:00 ICD10 Worksheet Patient Problems: Problems Problem Status Onset Intermittent explosive disorder Acute Nicotine dependence Acute Noncompliance Acute Schizophrenia Acute Thoughts of violence Acute
[2017-09-15] MEDS: RISPERIDONE 2 MG ODT TAB SL SCH (20:38)
[2017-09-15] MEDS: hydrOXYzine HCL 25 MG TAB PO SCH (20:38)
[2017-09-15] MEDS: LORazepam 0.5 MG TAB PO PRN (21:43)
[2017-09-16] MEDS: OMEGA-3 FATTY ACIDS 1,000 MG CAP PO SCH (08:51)
[2017-09-16] MEDS: NICOTINE 14 MG/24 HR PATCH TD SCH (08:52)
--- NOTE | 2017-09-16 11:28 | SOAPPROG ---
SOAP Progress Note Assessment/Plan: Assessment: Schizophrenia Intermittent Explosive DO versus Schizoaffective DO bipolar type Violent threats prior to admission Mild elevation in Triglycerides - on fish oil Patient appears improved with very limited insight. Plan: Short Term Certification Court Ordered Medication Patient received Invega Sustenna injections 09/02/17 and 09/09/17 Plan next Invega Sustenna injection on/after September 30 2017 (Q3-4weeks) Continue Risperdal Mtab 2mg QHS Continue Hydroxyzine 25mg QHS for sleep Reduce Ativan 0.25mg QHS PRN insomnia Education about Schizophrenia and benefit of treatment and medication compliance flight operation coordinator will review discharge planning with sister and [facility] Possible discharge tomorrow to [facility] 09/16/17 11:28 Subjective: CC: "I'm OK, ready to go to [facility]." Patient reports sleeping well. Denies agitation or irritability. Reports wanting to go to [facility] for one month then return to apartment. Reports he wants continued support from sister and father. Denies AH or paranoia that he was poisoned. Denies any plans to get a gun or kill or hurt anyone. Reports willingness to take medication after discharge to help with these symptoms: anxiety, trouble sleeping, feeling irritable. Disagrees with diagnosis of severe mental illness 'it is just stress that comes on sometimes.' Denies feeling stiff or slow. Objective: Vital Signs Temp Pulse Resp BP Pulse Ox 36.7 C 86 14 128/72 H 93 09/15/17 13:12 09/15/17 18:04 09/15/17 18:04 09/15/17 18:04 09/15/17 18:04 Laboratory Results 08/28/17 06:50 Alert WM. Ambulatory without tremors. Speech RRR. MOod 'good.' Affect odd, restricted. Thoughts briefly organized with poverty of information/detail. Denies paranoia or AH. Denies fear of father or sister or any thoughts of harming either family or [facility] staff. Denies suicidal ideation or any violent thoughts. Insight - limited, but improved from previous. Judgment appropriate regarding discharge planning. Staff report patient slept 9 hours with HS Risperdal Mtab 2mg; Hydroxyzine 25mg , Lorazepam 0.5mg Staff report patient able to sit quietly thru groups without anxiety or agitation. - Time Spent With Patient Time Spent With Patient: 20 minutes - Pending Discharge Pending Discharge Within 24 Hours: Yes Pending Discharge Within 48 Hours: No Pending Discharge Date: 09/17/17 Pending Discharge Time: 11:00 ICD10 Worksheet Patient Problems: Problems Problem Status Onset Intermittent explosive disorder Acute Nicotine dependence Acute Noncompliance Acute Schizophrenia Acute Thoughts of violence Acute
[2017-09-16] MEDS ORDERED: LORazepam 0.5 MG TAB PO PRN (11:31)
[2017-09-16] MEDS: NICOTINE POLACRILEX 2 MG GUM B PRN (15:00)
[2017-09-16 18:28] VITALS: BP 122/83; PULSE 84; RESP 16; TEMP 97.3; O2SAT 96
[2017-09-16] MEDS: RISPERIDONE 2 MG ODT TAB SL SCH (19:00)
[2017-09-16] MEDS: hydrOXYzine HCL 25 MG TAB PO SCH (19:00)
[2017-09-17] MEDS: NICOTINE 14 MG/24 HR PATCH TD SCH (07:26)
[2017-09-17] MEDS: OMEGA-3 FATTY ACIDS 1,000 MG CAP PO SCH (08:25)
[2017-09-17] MEDS: NICOTINE POLACRILEX 2 MG GUM B PRN (08:25)
--- NOTE | 2017-09-17 09:16 | BDS ---
[f rep st] BEHAVIORAL HEALTH DISCHARGE SUMMARY IDENTIFICATION: This is a 21-year-old single white male who is living in an apartment in [place] supported by his father in [place] and his sister here in [place]. He is unemployed. He has a history of severe mental illness and prior psychiatric hospitalizations. He is in outpatient treatment with [facility] health team as well as Dr. Kali Degroot, a psychiatrist in [place]. REASON FOR ADMISSION: Please review the psychiatric assessment from July. The patient had apparently moved from [place] to [place] in late 2016. He had been prescribed Seroquel for insomnia and schizophrenia and possibly bipolar disorder by his outpatient psychiatrist. He had been noncompliant with this medication. He apparently had been having severe insomnia, anxiety, agitation, paranoia about being harmed, distorted thinking with illogical thoughts about Hitler in the Holocaust. He also reported hearing voices and having command hallucinations to hurt others and possibly get a gun to hurt others. He apparently had been e-mailing his father bizarre and nihilistic e-mails and threatening to harm him as well as sending messages to the [employer]. He also apparently had been making statements about wanting to harm people to the [facility] staff. He was placed on an M-1 hold by [facility] staff. When the patient was admitted to the inpatient unit, the patient had disorganized thinking, paranoid ideas of reference, paranoia that he was being poisoned by multiple chemicals and agencies. He was pale and appeared thin, but had no focal weakness or tremors. He also reported command auditory hallucinations to kill people. He reported multiple auditory hallucinations. He was agitated. He denies suicidal thoughts. He had poor insight, impaired judgment. HOSPITAL COURSE: The patient was admitted on an M1 hold that was filed by his [facility] therapist who was working with him in the community. The patient's outpatient psychiatrist, Dr. Degroot, reported the patient appeared to have schizophrenia or possibly schizoaffective disorder, bipolar type, and had been noncompliant with Seroquel. The patient apparently had a history of approximately 3 psychiatric hospitalizations in [place] for severe mental illness. An outpatient psychiatrist in [place], [place] named Dr. Saxena, reported the patient had previously been stabilized on Invega Sustenna injections and had a history of recurrent non-compliance with oral medication. The patient initially was on Risperdal 2 mg twice a day for stabilization of psychosis. The patient benefited from this medication, but appeared to have slowing, and cogwheeling, and then the dose was later reduced to 2 mg. The patient received Invega Sustenna injection of 156 mg on September 02, 2017. The patient stipulated for court ordered medications and was on a short-term certification. The patient appeared to have worsening symptoms - agitation, explosive anger, illogical thinking, severe hostility - and the Risperdal was then later increased up to 4 mg a day again. The patient then received a 234 mg Invega Sustenna injection on September 09, 2017. After that, the Risperdal was reduced back down to 2 mg at night. The patient had intermittent insomnia and took hydroxyzine 25 mg at bedtime or lorazepam 0.25-1mg for sleep. On the unit, the patient initially had episodic explosive anger toward his sister, toward his father and toward staff; this would involve brief yelling with illogical thinking lasting several minutes at a time. Most of the time, he was quiet, isolative to his room. He had paranoid ideas of reference that agencies or past people that he had encountered in [place] had poisoned him with ricin, cyanide, bromide, or other chemicals which induced his psychiatric disorder. The patient did report prior to admission having fear that his father was putting him through some type of human sacrifice and felt like his father needed to . Prior to discharge, the patient repeatedly denied any plans to harm his father after discharge and reported having a positive relationship with his father. The patient reported intermittent auditory hallucinations, commanding to hurt others, prior to admission and on the day of admission. He also reported prior to admission he had thoughts of getting a gun and killing someone. He was unable to identify who. At one point, he did mention that there was a female that he had known 5 years ago in [place] that he had thoughts of hurting. He was unsure where she was. He said that he thought possibly she was in [place] or [place]. He was unable to explain where she was or how to get a hold of her or locate her as far as our duty to warn; he denied any intent to actually harm this woman. During the hospitalization, the patient repeatedly denied further thoughts to hurt others. He denied plans to get a gun and hurt others. He denied suicidal ideation. The patient did appear to have negative symptoms of schizophrenia regarding illogical thinking, lack of motivation for future self-care or having relationships with other people. He also initially had a lot of social anxiety , would avoid groups, avoid being around staff and was mostly quiet in his room. There were episodes where he had explosive anger and yelling on the phone with his angiographer, with his father and with his sister. He also had an episode where he was screaming and yelling and profane with his sister when she visited when he was not doing well. It was unclear if this was a bipolar spectrum mood disorder or an impulse control disorder, such as Intermittent Explosive Disorder. The patient later changed his mind and wanted to challenge the certification and so there was a court hearing to review the certification. The certification and court-ordered medications were upheld. Prior to discharge, the patient had been calm, pleasant, cooperative with medications, sleeping 9 to 10 hours at night, able to attend groups, was calm and pleasant. He had limited to poor insight into his severe mental illness. He was able to identify that psychiatric medications helped him with sleep, anxiety, irritability and agitation. Discharge planning was complicated by the fact that the patient had poor insight and was unlikely to take oral medications on his own based on this history. The patient had been living in an apartment with daily visits from [facility] staff. However, [facility] staff and the patient's family requested that the patient be on an outpatient certification following discharge to ensure that he receives his long-acting antipsychotic injection. The patient was referred to [facility]. The patient was agreeable to this and agreeable to a plan to step down to [facility] which is a 1 month residential program with daily medication monitoring and supervision here in the [place] area. The patient would be able to get his followup Invega Sustenna injection there as well as monitored Risperdal at bedtime until that next injection. Prior to discharge, the patient had been calm , pleasant, cooperative. He was ambulatory without tremors or weakness. He had been sleeping well at night. His speech was regular rate and rhythm with few words, limited information. He denied thoughts to hurt himself. He denied any violent thoughts or homicidal thoughts. He denied auditory hallucinations. He denied paranoia that he was being poisoned or harmed by anyone on the unit or in the community. He appeared to have a residual paranoia that he had been poisoned in the past prior to his first hospitalization. He was agreeable to be in communication with his sister and father in future. His memory was fair. His insight was limited. His judgment was questionable, but appropriate regarding short-term discharge planning. CONSULTATIONS: The patient had a baseline physical exam by Dr. Denise, on August 27, 2017. He had a followup hospitalist evaluation by Dr. Medina on September 08, 2017, due to concerns that he may have had a sexually transmitted disease. The patient was not found to have any major medical problems. PROCEDURES: None. LABORATORIES PENDING: None. LABORATORY RESULTS: Sodium 144, potassium 4.,5 creatinine 0.9, glucose 78, hemoglobin A1c 5.2, total bilirubin 0.9, AST 39, ALT 31, albumin 4.8. Triglycerides 208, LDL 69, HDL 43. TSH 1.9. His STD testing was negative including a nonreactive RPR, negative chlamydia RNA, negative hepatitis C antibody, negative HIV antibody, negative gonorrhea RNA. DISCHARGE DIAGNOSIS: Schizophrenia, Intermittent Explosive Disorder, rule out schizoaffective disorder, bipolar type, Elevated triglycerides Nicotine use disorder, severe. DISCHARGE MEDICATIONS: [place]-3 fatty acids, fish oil 1000 mg by mouth daily [id number] for hyperlipidemia, nicotine gum 2 mg q.1 hour p.r.n. for nicotine cravings, hydroxyzine 25 mg p.o. at bedtime for insomnia, Lorazepam 0.25 mg by mouth at bedtime p.r.n. for insomnia, Risperdal 2 mg p.o. at bedtime , Invega Sustenna 234 mg injection q.4 weeks. The next injection of this medication is due October 07. This injection can be given up to 1 week early on or after September 30, 2017. DISPOSITION: The patient is leaving the unit with [facility] staff. FOLLOWUP: The patient will be seen by Dr. Conn or another psychiatrist at [facility] for psychiatric medication while residing at [facility]. LEGAL STATUS: The patient was admitted on an M1 hold and then placed on a short -term certification. This physician applied for court-ordered medications. The patient initially stipulated for both, but then contested it and we had a court hearing in which this certification and court-ordered medications were upheld. The short-term certification was originally dated August 27, 2017, and will November 24, 2017. [facility] will continue to hold the certification while the patient is in intensive treatment at [facility]. ADDENDUM: The patient's sister, Juana Munoz's phone number is [phone]. The patient's father's phone number is . /[phone]/MODL MTDD
== END 2017-09-17 09:36 | DRG 885 ==
LOC: BBEH 02:30
PROVIDERS: ADMIT Psychiatry & Neurology Behavioral Neurology & Neuropsychiatry
DX: F20.9 Schizophrenia, unspecified (principal); F17.200 Nicotine dependence, unspecified, uncomplicated; F51.05 Insomnia due to other mental disorder; F63.81 Intermittent explosive disorder; Z91.14 Patient's other noncompliance with medication regimen
CPT/HCPCS: G0472; J2426

== ENCOUNTER 2017-12-05 17:22 | Inpatient (IN) | payer MEDICAID, OTHER ==
--- NOTE | 2017-12-05 18:45 | EDPHY ---
H & P Time Seen by Provider: 12/05/17 18:13 HPI/ROS: CHIEF COMPLAINT: "I am hearing voices" HISTORY OF PRESENT ILLNESS: Patient is a 22-year-old male with a history of schizoaffective disorder currently undergoing treatment who presents emergency department with worsening symptoms. Patient is treated as an outpatient by the [facility] team. Patient is followed by Dr. Conn from Psychiatry. Patient is here with his counseling service. They felt his symptoms are worsening any needs placement to an inpatient treatment facility. He is currently under court order to receive medications. He has been taking his medications. He states he hears voices that are"not friendly."He denies thoughts of wanting to harm himself at this time. Per his therapist, his psychiatrist felt that he should be placed on a hold. REVIEW OF SYSTEMS: My complete review of systems is negative except as mentioned in the HPI. Past Medical/Surgical History: Includes schizoaffective disorder Social history: Patient smokes Smoking Status: Heavy smoker Physical Exam: Vitals noted GENERAL: Well-appearing, in no acute distress, alert. HEENT: Eyes normal to inspection, normal pharynx, no signs of dehydration. NECK: No thyromegaly, no lymphadenopathy, supple. RESPIRATORY: Clear to auscultation bilaterally, no rales, rhonchi or wheezing. CVS: Regular rate and rhythm, no rubs, murmurs, or gallops. ABDOMEN: Soft, nontender, nondistended, no organomegaly. BACK: Normal to inspection, no CVA tenderness. SKIN: Normal color, no rash, warm, dry. No pallor. EXTREMITIES: No pedal edema, no calf tenderness, no Homans sign or cords, no joint swelling. NEURO/PSYCH: Alert and oriented x3, normal mood and affect, normal motor sensory exam. No obvious cranial nerve deficit. Constitutional: Initial Vital Signs Temperature (C) 36.8 C 12/05/17 18:06 Heart Rate 85 12/05/17 18:06 Respiratory Rate 16 12/05/17 18:06 Blood Pressure 122/85 H 12/05/17 18:06 O2 Sat (%) 95 12/05/17 18:06 O2 Delivery Mode Room Air Allergies/Adverse Reactions: No Allergies [NKA] Allergy (Verified 12/05/17 18:04) Home Medications: Medication Instructions Recorded Nicotine Polacrilex [Nicorette gum 2 mg B Q1H PRN gum 09/17/17 (*)] [place]-3 Fatty Acids [Fish Oil 1000 1,000 mg PO DAILY cap 09/17/17 mg (*)] Paliperidone Palmitate [Invega 234 mg IM ONCE #1 syr 09/17/17 Sustenna (*)] Risperidone 2 mg PO HS #30 tablet 09/17/17 [place] Carbonate 12/05/17 Medical Decision Making ED Course/Re-evaluation: In the emergency department I met the patient on arrival. I discussed possible etiologies with the patient. I answered his questions. I discussed the plan. He consented to have laboratory studies drawn. He is placed on an M1 hold. He was made aware. Patient was recheck while here. He was stable. Differential Diagnosis: My differential includes but is not limited to schizoaffective disorder, bipolar disorder, medication noncompliance, electrolyte abnormality, sugar abnormality, mass, malignancy Departure - Departure Clinical Impression: Hallucinations Schizoaffective disorder Qualifiers: Schizoaffective disorder type: other Qualified Code(s): F25.8 - Other schizoaffective disorders Condition: Good Instructions: Hallucinations (ED) Referrals: LELAND WILBURN [Primary Care Provider] - As per Instructions
[2017-12-05 19:17] LABS: PLATELET COUNT 233 10^3/uL (150-400)
[2017-12-06] MEDS ORDERED: ACETAMINOPHEN 325 MG TAB PO PRN (00:30)
[2017-12-06] MEDS ORDERED: MAG HYDROX/AL HYDROX/SIMETH 30 ML UDCUP PO PRN (00:30)
[2017-12-06] MEDS ORDERED: LORazepam 0.5 MG TAB PO PRN (00:30)
[2017-12-06] MEDS ORDERED: MAGNESIUM HYDROXIDE 30 ML UDCUP PO PRN (00:30)
[2017-12-06] MEDS: OLANZapine DISINTEGR 5 MG TAB PO PRN ×2 (01:45→17:41)
[2017-12-06] MEDS: risperiDONE 2 MG TAB PO SCH (09:00)
[2017-12-06] MEDS: LITHIUM CARBONATE ER 300 MG TAB PO SCH (09:00)
[2017-12-06] MEDS ORDERED: hydrOXYzine HCL 25 MG TAB PO PRN (13:18)
--- NOTE | 2017-12-06 14:47 | BAPA ---
[f rep st] ADMISSION PSYCHIATRIC ASSESSMENT DATE OF SERVICE: 12/06/2017 CHIEF COMPLAINT: "Hearing unfriendly voices." HISTORY OF PRESENT ILLNESS: The patient is a 22-year-old man with a history of schizoaffective disorder who arrived to the [facility] ED via private vehicle with his sister. The patient says that he has been hearing voices that are "not friendly." He denies thoughts of wanting to hurt himself or anyone else. According to his outpatient therapists, they recommended the patient be placed on a mental health hold and readmitted to the hospital. The patient says the voices have been telling him to kill himself, but he does not have the intent or plan to act on those thoughts. He says that he feels like he needs help now and wants to come inpatient. The patient is currently receiving services through [facility]. He also had an extension of his short-term certification as well as court ordered involuntary medications, which was the decision made by the court on November 25, which extends the date of his short-term certification and involuntary medications through February 24, 2018. When this MD met with the patient on the inpatient behavioral services unit on , he was lethargic, lying in bed. MD met with the patient with the nurse healthcare manager, Abril, in his room. He was groggy, stated that he came into the hospital because of auditory hallucinations. He said that he was hearing voices that told him to "go to hell" and voices telling him to kill himself. He said he was also seeing gruesome images in his mind's eye. He admits that these were not visual hallucinations. He did not believe that those things were real or that they were happening in reality. He knew that they were just going on in his head. The patient admitted that he has been smoking marijuana recently. He says that he has also been drinking alcohol a couple of times in the last month. He says that he has used marijuana 2-3 times in the last month , most recently was last week. When MD met with the patient, the patient denied that he was experiencing auditory or visual hallucinations at that moment. He gave no outward indication that he was distressed in any way, shape or form. He did not give any evidence of any emotional or psychological disturbance. He was in no acute distress. He was not visibly labile or emotional. He was not fidgety or restless. He was not distracted. The patient 's outward presentation was at odds with his self-reported symptoms. He said that he wanted to "change medications" because he said his medications "are not helping the voices go away." When MD mentioned the fact that the reason for the breakthrough hallucinations and disturbing thoughts may be related to his increased use of mood-altering substances, the patient minimized his use of alcohol and marijuana and did not agree with the physician that stopping his use of those mood altering and cognitively impairing substances might help to diminish some of the symptoms that he reports. The patient said that he wants to be on "new medications." Says he also wants something "different for anxiety." He says that he has developed a tolerance to Ativan and "it is not helping anymore." The patient denied any thoughts, plans or intents to hurt himself or anyone else. MD also spoke with Dr. Lianet Navarro at [facility]. She said that she is no longer the patient's outpatient therapist, that she treated him when he was at [facility], but that the patient sees Dr. Live Conn for medication management now. She said that in her experience, the patient has been very "stable" on his current medication regimen and that she feels that his recent relapse on marijuana and alcohol are the most likely precipitants for his decompensation and recurrence of his psychotic symptoms and mood instability. This MD also spoke with the manufacturers service representative from [facility], wanted the therapist on the patient's treatment team, who came to visit him in the hospital today. His therapist at [facility] says that the patient has been relatively stable up until the last week. [facility] had been using marijuana and alcohol more frequently. This therapist noted that the patient seemed to be upset by the recent well- published news of Cong Silvestre's suicide and said that this seemed to "trigger" the patient into feeling more helpless and hopeless and that he was having more intense negative feelings and thoughts associated with this information that he read in the news. PSYCHIATRIC HISTORY: The patient was most recently admitted to [facility] on the inpatient psych unit on 08/27/2017, and he was discharged on 09/17/2017. During that time, the patient refused to take medications and a petition for a court ordered involuntary medication was submitted which the court approved. Since that time, the patient was discharged on Invega Systane q. month. He was also on Risperdal 2 mg daily and Seroquel p.r.n. for sleep. He was also getting Ativan and Vistaril p.r.n. for anxiety. Since that time, the patient's outpatient psychiatrist, Dr. Navarro, and Dr. Conn, at [facility], have changed his diagnosis to schizoaffective disorder, bipolar type, and started him on lithium. Dr. Navarro said that she has seen the patient to be very stable and do well on his current regimen of medication. The patient does have a prior history of suicide attempts, and prior to moving to [place], sister reports that the patient was hospitalized twice in inpatient facilities in [place]. He had his first psychotic break a couple months after taking LSD. Sister reports " his brain woke up and he was hearing voices telling him to jump off a building. " The patient is currently followed by multiple providers. He gets services through [facility]. Dr. Live Conn is his outpatient psychiatrist. He is also getting therapy services through [facility]. His [facility] treatment team includes a primary therapist, Mahogany Lopez. ALLERGIES: The patient has no known drug allergies. CURRENT MEDICATIONS: The patient currently receives Invega Sustenna 156 mg IM q.4 weeks. His next shot is due on 12/31/2017. The patient also takes fish oil 1000 mg p.o. daily, Risperdal 4 mg p.o. q.a.m., lithium ER 1200 mg p.o. q.a.m. He is also taking Vistaril and Ativan p.r.n. for anxiety. LABORATORY DATA: Labs were done at [facility]. His white cell count was 10.74, hemoglobin 15.9, hematocrit 44.9, platelet count 233. Sodium was 137 , potassium was 4.1, chloride 102, BUN 12, creatinine 0.9, glucose 91, calcium 9.7. Urine drug screen was positive for marijuana. Negative for all other drugs of abuse. Salicylate and acetaminophen levels were both undetected. Ethyl alcohol level was less than 10. His lithium level was added onto his ED medications and the level came back at 1.2, however, that is more than likely not a trough since it was added onto labs that were drawn in the ED sometime around 1600 hours and he had taken his last dose of lithium late Friday morning , so this was less than 12 hours when that blood was drawn. PAST MEDICAL HISTORY: The patient denies any medical issues. No prior surgeries. SOCIAL HISTORY: The patient is currently living in [place]. [facility] [place], but he does not have a roommate currently. They are looking to the place him with a therapeutic roommate, but so far they have not been able to find anyone. The patient did attend some college, did not complete college. He is currently unemployed. Has no outstanding legal issues. FAMILY HISTORY: The patient reports that his mother takes antipsychotic medications, but is not sure what her diagnosis is. There is no family history of substance abuse issues. No family history of suicide. SUBSTANCE USE HISTORY: Patient reports smoking half pack of cigarettes daily. He says that he uses alcohol 1-2 times a month and he has been smoking cannabis a couple of times in the last month. Most recent use was a week ago. He has a prior history of using hallucinogens. He said he did LSD several times when he was 20, which led to his first psychotic episode. When this MD spoke to Dr. Navarro, she reported that the patient has a significant prior substance use history including multiple different drugs of abuse. TRAUMA HISTORY: The patient denies a history of psychological, emotional, or sexual abuse. LEGAL HISTORY: Patient has no known legal issues. MENTAL STATUS EXAMINATION: The patient is an average height, overweight, man, lying in bed, wearing a hospital gown and scrub pants. He is alert and oriented x4, but somewhat sluggish and lethargic as he has been sleeping most of the morning. His affect is euthymic. Demeanor is appropriate. He makes poor eye contact. He does not seem particularly engaged in conversation with the MD, in fact, he gets up at one point, turns his back to the MD while the MD is talking to go and get some water. When he comes back , he buries his head in a pillow. His speech rate and volume are normal. He denies feeling sad, helpless, hopeless, worthless. He reports feeling anxious lately, but denies that he is currently having any anxiety symptoms, although he says that his anxiety flares up from time to time. He gives no outward impression that he is anxious or in any distress. He denies experiencing any psychotic symptoms currently. He denies auditory and visual hallucinations as well as paranoid delusions, although he says that he has had unfriendly and hostile voices in his head worsening over the last week. Those are not in evidence currently. There is no evidence of any gilma. The patient denies any thoughts, plans or intents to hurt himself or anyone else. He does not have pressured speech or racing thoughts. His intellectual function appears to be average based on his vocabulary, fund of knowledge and educational history. His insight and judgment both appear to be poor as evidenced by his recent relapse on alcohol and marijuana. IMPRESSION: 1. Schizoaffective disorder, bipolar type by history. 2. Cannabis use disorder, severe. 3. Alcohol use disorder, severe. 4. Hallucinogen use disorder, in full sustained remission. 5. Amphetamine use disorder, in full sustained remission. 6. The patient is unemployed. Financial support comes from his family. He is living in [place] with limited social support outside of his immediate family. PLAN: 1. Admit patient to the inpatient Behavioral Health Services Unit on 3 on an M-1 hold. 2. Monitor closely for safety. Patient is currently not exhibiting any signs of psychosis or unsafe behavior. 3. We will continue to monitor and observe the patient in order to determine. 4. This MD spoke with Dr. Navarro, who had previously been the patient's outpatient psychiatrist. She said the patient has been relatively stable on his current regimen of medications and did not recommend making any changes. She said that the most likely cause of his recent decompensation is his relapse on multiple mood altering and cognitively impairing substances. This MD concurs with this assessment and feels like maintaining the patient on his current medications is the most appropriate course of action. The patient states that he does want to be on different long-acting injectable and a different p.o. medication because he does not feel like the medications are helping with his voices. He is unwilling to acknowledge that his use of marijuana and alcohol may be worsening and exacerbating his psychotic symptoms as well as contributing to his mood instability. 5. The patient has agreed to continue taking his current regimen of medications and took Risperdal 4 mg this morning as well as his lithium 1200 mg ER. 6. The patient's lithium level came back at 1.2, but suspects that this is not a true trough as his blood was drawn in the emergency department and a lithium level was added onto those medications which were drawn less than 12 hours after his last dose of lithium. Will repeat lithium level in the a.m. prior to him getting his morning dose and re-evaluate the level when those lab results are back. 7. The patient is currently on an extension of his short-term certification and court ordered involuntary medications. A copy of that court order is in the patient's current chart. That extension is good through February 24, 2018. 8. Estimated length of stay is 3-5 days depending on how quickly the patient stabilizes. When therapist has already been here to see him and feels like the patient is doing better than when they had last seen him, he seems to be in much less distress, does not seem to be as bothered by his negative thoughts or intrusive hallucinations. /[id number]/MODL MTDD
[2017-12-06] MEDS: NICOTINE POLACRILEX 2 MG GUM B PRN ×2 (15:08→19:07)
[2017-12-06] MEDS: LORazepam 0.5 MG TAB PO PRN (15:33)
--- NOTE | 2017-12-06 15:41 | PDHOSCONS ---
History and Physical - Chief Complaint Acute auditory hallucinations - History of Present Illness PCP: Dr. Vargas Psych: Dr. Conn HPI: 22 yo M p/w acute auditory hallucinations characterized as voices of his friends/family that were "not friendly", instructing him to harm/kill self, w/ associated gruesome imagery and hopelessness. He denies overt suicidal ideation or homicidal ideation, and reports that the voices are more instructive in nature. His mental health providers indicated that Cong Silvestre's suicide did seem to be an exacerbating factor/trigger of his symptoms. He also reports that the images are not visual hallucinations, and recognizes that they are inside his head. He was brought to [facility] ED from his mental health provider office and placed on M1 hold. On our evaluation, his prominent symptom is anxiety, and he would like for adjustment in his anxiety medications. He denies any physical symptoms, albeit he does recognize that he was somewhat lethargic earlier in the day. He is currently hungry, eating a granola bar voraciously during our encounter, after downing an ice cream cup. He reports his last alcohol use was 4 days prior, and his last hallucinogen use was approx 7 months ago. He does intermittently use THC, and has done so recently. History Information - Allergies/Home Medication List Allergies/Adverse Reactions: No Allergies [NKA] Allergy (Verified 12/05/17 18:04) Home Medications: Acetaminophen [Tylenol 325mg (*)] 650 mg PO Q4 PRN 12/06/17 [Last Taken Unknown] LORazepam [Ativan (*)] 1 mg PO TID PRN 12/06/17 [Last Taken Unknown] Greenbush Carbonate ER [Lithobid 300 mg (*)] 1,200 mg PO DAILY 12/06/17 [Last Taken Unknown] Mag Hydrox/Aluminum Hyd/Simeth [Alum-Mag Hydroxide-Simeth Liq] 15 ml PO Q6 PRN 12/06/17 [Last Taken Unknown] Magnesium Hydroxide [Milk of Magnesia] 30 ml PO DAILY PRN 12/06/17 [Last Taken Unknown] Casar-3 Fatty Acids [Fish Oil 1000 mg (*)] 1,000 mg PO DAILY 12/06/17 [Last Taken Unknown] Paliperidone Palmitate [Invega Sustenna (*)] 156 mg IM Q28D 12/06/17 [Last Taken 12/03/17] diphenhydrAMINE [Benadryl 50 MG (*)] 50 mg PO QID PRN 12/06/17 [Last Taken Unknown] risperiDONE [Risperdal 1mg (*)] 1 mg PO QID PRN 12/06/17 [Last Taken Unknown] risperiDONE [Risperdal] 4 mg PO DAILY 12/06/17 [Last Taken Unknown] I have personally reviewed and updated: family history, medical history, social history, surgical history - Past Medical History Additional medical history: Schizoaffective disorder, bipolar type, on court- ordered medications - Surgical History Reports: no pertinent surgical hx - Family History Additional family history: mother on anti-psychotics, unclear diagnosis; no reported family hx of substance abuse or suicide - Social History Smoking Status: Heavy smoker Alcohol Use: Occasionally Drug Use: Marijuana, Other (IVDU experimentation 5 years ago; LSD approx 7 months ago) Additional social history: lives at [facility] Review of Systems Review of Systems: ROS: 10pt was reviewed & negative except for what was stated in HPI & below Constitutional: Reports: other (lethargy) Neurological: Reports: anxiety, other (auditory hallucinations) Physical Exam Physical Exam: Temp Pulse Resp BP Pulse Ox 36.5 C 68 16 121/74 H 95 12/06/17 01:41 12/06/17 01:41 12/06/17 01:41 12/06/17 01:41 12/06/17 01:41 Constitutional: no apparent distress, appears nourished, not in pain Eyes: PERRL, anicteric sclera, EOMI Ears, Nose, Mouth, Throat: moist mucous membranes, hearing normal, ears appear normal, no oral mucosal ulcers Cardiovascular: regular rate and rhythym, no murmur, rub, or gallop, No edema Respiratory: no respiratory distress, no rales or rhonchi, clear to auscultation Gastrointestinal: normoactive bowel sounds, soft, non-tender abdomen, no palpable masses, No distension Skin: other (healed circular scars LUE w/o surrounding erythema) Neurologic: AAOx3, No weakness, No facial droop Psychiatric: interacting appropriately, not encephalopathic, thought process linear, anxious, flat affect, No agitated Lab Data & Imaging Review 12/05/17 18:51 12/05/17 18:51 WBC 10.74 10^3/uL (3.80-9.50) H 12/05/17 18:51 RBC 4.99 10^6/uL (4.40-6.38) 12/05/17 18:51 Hgb 15.9 g/dL (13.7-17.5) 12/05/17 18:51 Hct 44.9 % (40.0-51.0) 12/05/17 18:51 MCV 90.0 fL (81.5-99.8) 12/05/17 18:51 MCH 31.9 pg (27.9-34.1) 12/05/17 18:51 MCHC 35.4 g/dL (32.4-36.7) 12/05/17 18:51 RDW 12.2 % (11.5-15.2) 12/05/17 18:51 Plt Count 233 10^3/uL (150-400) 12/05/17 18:51 MPV 9.3 fL (8.7-11.7) 12/05/17 18:51 Neut % (Auto) 57.9 % (39.3-74.2) 12/05/17 18:51 Lymph % (Auto) 27.0 % (15.0-45.0) 12/05/17 18:51 Dixon % (Auto) 6.9 % (4.5-13.0) 12/05/17 18:51 Eos % (Auto) 7.4 % (0.6-7.6) 12/05/17 18:51 Baso % (Auto) 0.6 % (0.3-1.7) 12/05/17 18:51 Nucleat RBC Rel Count 0.0 % (0.0-0.2) 12/05/17 18:51 Absolute Neuts (auto) 6.23 10^3/uL (1.70-6.50) 12/05/17 18:51 Absolute Lymphs (auto) 2.90 10^3/uL (1.00-3.00) 12/05/17 18:51 Absolute Monos (auto) 0.74 10^3/uL (0.30-0.80) 12/05/17 18:51 Absolute Eos (auto) 0.79 10^3/uL (0.03-0.40) H 12/05/17 18:51 Absolute Basos (auto) 0.06 10^3/uL (0.02-0.10) 12/05/17 18:51 Absolute Nucleated RBC 0.00 10^3/uL (0-0.01) 12/05/17 18:51 Immature Gran % 0.2 % (0.0-1.1) 12/05/17 18:51 Immature Gran # 0.02 10^3/uL (0.00-0.10) 12/05/17 18:51 Sodium 137 mEq/L (135-145) 12/05/17 18:51 Potassium 4.1 mEq/L (3.3-5.0) 12/05/17 18:51 Chloride 102 mEq/L (97-110) 12/05/17 18:51 Carbon Dioxide 24 mEq/l (22-31) 12/05/17 18:51 Anion Gap 11 mEq/L (8-16) 12/05/17 18:51 BUN 12 mg/dL (7-23) 12/05/17 18:51 Creatinine 0.9 mg/dL (0.7-1.3) 12/05/17 18:51 Estimated GFR > 60 12/05/17 18:51 Glucose 91 mg/dL (70-100) 12/05/17 18:51 Calcium 9.7 mg/dL (8.5-10.4) 12/05/17 18:51 Salicylates < 1.0 mg/dL (2.0-20.0) L 12/05/17 18:51 Urine Opiates Screen NEGATIVE (NEGATIVE) 12/05/17 18:45 Acetaminophen < 10 mcg/mL (10-30) L 12/05/17 18:51 Urine Barbiturates NEGATIVE (NEGATIVE) 12/05/17 18:45 Ur Phencyclidine Scrn NEGATIVE (NEGATIVE) 12/05/17 18:45 Ur Amphetamine Screen NEGATIVE (NEGATIVE) 12/05/17 18:45 U Benzodiazepines Scrn NEGATIVE (NEGATIVE) 12/05/17 18:45 Greenbush 1.2 mEq/L (0.6-1.2) 12/06/17 06:20 Urine Cocaine Screen NEGATIVE (NEGATIVE) 12/05/17 18:45 U Marijuana (THC) Screen NON-NEGATIVE (NEGATIVE) H 12/05/17 18:45 Ethyl Alcohol < 10 mg/dL (0-10) 12/05/17 18:51 Assessment & Plan Assessment: 22 yo M p/w acute auditory hallucinations in setting of schizoaffective disorder Plan: # Auditory hallucinations. Acute, potentially potentiated by combination of recent alcohol/THC use, as well as celebrity suicide trigger -tox screen positive THC -reviewed outside records including ED report by Dr. Dubon 12/05/17, recording the nature of presentation from [facility], as outlined in HPI -currently under mgmt of primary psych service, receiving risperdal and lithium # Schizoaffective disorder. Primary psych Dr. Conn, currently on court ordered Rx, Greenbush level 1.2, indicating he is adhering to Rx # Tobacco use disorder. Make NRT available PRN to patient -patient reports cigarette wallace on LUE intention, occurred in past, no other e/ o self-harm # Hx of IVDU. Patient reports experimenting in past; reports that he has had appropriate HCV/HIV screening by his PCP -recommend PCP check outpt lab records to confirm Hospital medicine will sign-off, no further medical issues requiring additional work-up; please contact [phone] if additional concerns.
[2017-12-06] MEDS ORDERED: NICOTINE 21 MG/24 HR PATCH TD PRN (15:50)
[2017-12-07] MEDS: risperiDONE 2 MG TAB PO SCH (09:46)
[2017-12-07] MEDS: LITHIUM CARBONATE ER 300 MG TAB PO SCH (09:46)
[2017-12-07] MEDS: OMEGA-3 FATTY ACIDS 1,000 MG CAP PO SCH (09:46)
[2017-12-07] MEDS: LORazepam 0.5 MG TAB PO PRN ×2 (09:57→17:15)
[2017-12-07] MEDS: NICOTINE POLACRILEX 2 MG GUM B PRN (12:50)
--- NOTE | 2017-12-07 14:37 | SOAPPROG ---
SOAP Progress Note Assessment/Plan: Assessment: 22 yo with h/o schizoaffective disorder and polysubstance dependence. He is currently a [facility] client. He was recently admitted to in 10/15 x 3 weeks. He was admitted on 12/06/17 d/t worsening auditory hallucinations which he claims are "unfriendly voices" that tell him to hurt himself. He denies any plan or intent to act on these commands. Plan: 12/07/17 14:20 1. Patient presents calm, cooperative, able to focus with no restlessness, fidgeting, distractibility or distress in evidence. His presentation is incongruent with his endorsement of voices that tell him to "Go to hell" and to harm himself. 2. His outpatient team, including Dr. Navarro and Eloisa (his therapy cleaning team member) report that patient has great deal of difficulty tolerating strong emotions and stressful situations. According to them, patient tends to isolate and to perseverate on negative thoughts and violent images. Recently, Eloisa told staff, patient has been bothered by suicide deaths of Sofia Merritt and Cong Silvestre. Patient has reported graphic images of hanging and scenes of violence that intrude into his daily thoughts. Patient also admits to drinking ETOH 4 days ago and smoking THC last week. It's likely that the combination of mood-altering drugs and alcohol along with stressful events in the news exacerbated patient's tendency to catastrophize and have negative intrusive thoughts and images. These thoughts may manifest themselves as internal monologues or command "voices" that in fact may be patient's own imagination. It 's difficult to prove the case whether these are truly psychotic hallucinations or not. Patient states that antipsychotics, including Invega Sustenna, and Risperdal 4mg PO, do "nothing" to quiet or terminate these "voices." This should , at least, raise possibility that what the patient experiences are not true psychotic hallucinations, but rather the internal manifestation of negative and stressful situations in his life (even hearing about violent events in the news) . As such, there would be no benefit to prescribing higher doses or more kinds of psychotropic medications. The risks and potential adverse effects of polypharmacy would significantly outweigh any potential benefit. 3. Patient may benefit more from appropriate individual and group therapy to address his inability to self-regulate and to tolerate stressful situations in his life. Patient admits he has used illicit and legal recreational drugs since adolescence to make himself forget bad things and feel better about his life. This maladaptive coping mechanism has prevented patient from developing the skills and talent to deal with stressful or emotional situations when they arise. His outpatient team from [facility] say the patient is very resistant to doing therapy. On unit, patient slept in his room when [facility] staff came to visit with him. Instead of visiting, [facility] staff sat in common area and read books. His therapy team report this behavior is typical for patient, he often sleeps through therapy sessions or avoids them altogether. It's hard to imagine how patient will ever change his habit of avoiding stress through recreational drug use or other poor coping skills, if he doesn't start to engage in his outpatient treatment. 4. Patient has refused to attend any groups on the unit. He says it is "boring" and he plans to "sleep the whole time" he's in hospital. 5. Patient is on COM and extended STC until 02/24/18. 6. CC to contact Dr. Conn and outpatient team on Friday to arrange f/u appts. Subjective: Met with patient, reviewed chart and d/w staff. Patient slept 9 hrs overnight and slept most of the AM. He only came out of his room for meals and to watch TV in afternoon. When MD met with patient, he was calm, polite, appropriate, and showed no signs of anxiety, agitation, distraction or distress. When asked how he felt, he gave MD a thumbs up sign and said, "everything's good." He denied any AH/VH, paranoia or other psychotic sxs, though he reported "unfriendly voices" were still bothering when CC asked him this AM. He denies any SI/HI. Objective: Vital Signs Temp Pulse Resp BP Pulse Ox 36.5 C 53 L 14 89/60 L 95 12/07/17 06:00 12/07/17 06:00 12/07/17 06:00 12/07/17 06:00 12/07/17 06:00 MSE: Affect: Euthymic Mood: "Good" TP: Linear, goal-directed TC: Denies and endorses AH, no VH, no SI/HI Insight/Judgment: Poor - Time Spent With Patient Time Spent With Patient: 15" - Pending Discharge Pending Discharge Within 24 Hours: No Pending Discharge Within 48 Hours: No ICD10 Worksheet Patient Problems: Problems Problem Status Onset Hallucinations Acute Schizoaffective disorder Acute Intermittent explosive disorder Acute Nicotine dependence Acute Noncompliance Acute Schizophrenia Acute Thoughts of violence Acute
[2017-12-07] MEDS: OLANZapine DISINTEGR 5 MG TAB PO PRN (17:16)
[2017-12-08 06:33] VITALS: BP 112/60
[2017-12-08] MEDS: risperiDONE 2 MG TAB PO SCH (09:32)
[2017-12-08] MEDS: LITHIUM CARBONATE ER 300 MG TAB PO SCH (09:32)
[2017-12-08] MEDS: OMEGA-3 FATTY ACIDS 1,000 MG CAP PO SCH (09:32)
[2017-12-08] MEDS: LORazepam 0.5 MG TAB PO PRN (12:29)
--- NOTE | 2017-12-08 13:01 | SOAPPROG ---
SOAP Progress Note Assessment/Plan: Assessment: Schizoaffective disorder. Patient is improving (see subjective/objective note) . Patient could benefit from continued inpatient hospitalization for crisis stabilization, safety, and medication evaluation. Plan: Review psychotropic medication treatment informed consent and recommendations. After reviewing treatment options, risk and benefits of treatment, patient agrees to continue medications with the following changes. No medication changes at this time as more time is needed to determine ongoing tolerability and efficacy. Plan is to continue to observe patient for response and side effects from medications, and ongoing monitoring and evaluation. Next steps are for patient to meet with patient care secretary to plan a safe discharge plan and establish outpatient services for ongoing treatment. Consider discharge on Friday if patient is in stable condition, safe, and has a safe discharge plan. PSYCHOTROPIC MEDICATION TREATMENT INFORMED CONSENT and RECOMMENDATIONS: Review nature of condition, diagnosis, and prognosis. Review nature and purpose of psychotropic medication treatment. Review type of psychotropic medications being ordered. Review risk and benefits of psychotropic medication treatment. Review probable length of time patient will need to take medications. Review risk and benefits of not undergoing psychotropic medication treatment. Review alternative treatments to psychotropic medications. Review psychotropic medications contraindications, drug-drug interactions, side effects, and importance of reporting any side effects to a psychiatric provider or nurse during inpatient hospitalization, and upon discharge to patients psychiatric outpatient provider, primary care provider, or other health reservoir caretaker. Review importance of asking a nurse, psychiatric provider, or primary care provider any questions or problems concerning the psychotropic medications. Verify patient understands the information that has been provided, and understands, accepts, and agrees to psychotropic medications. Review patients safety plan and importance of patient to report to staff while hospitalized if patient is ever a danger to self/others, or unable to care for self, and upon discharge, the importance for patient to contact [facility] or [facility], or go to the nearest emergency room, if patient is ever a danger to self/others, or unable to care for self. Recommend that upon discharge patient establish medication management treatment with a psychiatric provider, establishes routine therapy appointments, and follow-up with primary care provider. Verify patient understands and agrees to these recommendations. 12/08/17 13:05 Subjective: Following up with patient for evaluation of psychosis and safety. Patient reports, Doing better, was just anxious when I go here and now feeling better. Patient expresses the following psychiatric symptoms auditory hallucinations have improved to his baseline, and have improved since admission. Patient states taking medications as prescribed, tolerating medications with no report of side effects, and with good response for psychosis and anxiety symptoms. Patient states he has not been attending groups. Patient describes sleeping about 9 hours of sound and uninterrupted sleep last night and reports feeling rested. The patient describes his appetite as good, and describes eating all meals. Patient reports his mood as better and states this is an improvement since admission. Patient denies SI/HI and reports last having SI prior to his/ her admission. Objective: Vital Signs Temp Pulse Resp BP Pulse Ox 36.5 C 50 L 14 112/60 95 12/08/17 06:00 12/08/17 06:00 12/08/17 06:00 12/08/17 06:00 12/08/17 06:00 Treatment team report: Consulted with treatment team staff for update on patients progress in treatment. Nurses report patient is taking medications as prescribed, is tolerating medications without report of side effects. Nurses report patient has expressed the following psychiatric symptoms some auditory hallucinations, but patient reported he always has voices and have improved to what he describes as tolerable and at this baseline. Staff reports patient slept 10 hours last night and slept throughout the night. Patient is eating all meals. Patient denies SI/HI, A/V hallucinations, delusions, and has expressed no psychiatric symptoms since his admission. Staff reports they have noticed an improvement in the patients presentation since admission, most notable anxiety. With regard to discharge planning, health and social care teacher reports he is currently making arrangement for patient to be transferred to [facility]. Update: Improved auditory hallucinations. No S/S gilma and patient does not appear to be attending to internal stimuli. Patient is currently improving, tolerating medications with no reports of side effects, and with good response for psychosis symptoms. Patient shows good treatment response as of today. OP psych provider reports patient has auditory hallucinations at baseline that patient is able to tolerate, and OP provider suspicion is that patient recently used MJ that exacerbated hallucinations that led to this admission. Patient UDS + MJ. OP provider has recommend patient be discharged to [facility] rather than to independently living in order to be monitored closely for safety. The patient presents casually dressed and with good hygiene, and looks stated age. Patient is sitting, posture is upright, and position is relaxed. Patient appears awake, alert, and responds appropriately and reasonably during interview. Patient is engaged, relates well to interviewer, and emotional facial expression is appropriate to situation and changes appropriately with topic. Patient is cooperative, makes comfortable eye contact, and movements are voluntary, deliberate, coordinated, and smooth and even with no inappropriate movements. Patient makes laryngeal sounds effortlessly and shares conversation appropriately; pace of conversation is appropriate, and stream of talking is fluent; articulation is clear and understandable; word choice is effortless and appropriate for education level; completes sentences, occasionally pausing to think; rate and volume are appropriate for interview and setting. Patient reports mood as euthymic. Patients affect is stable with full variable range, congruent with mood, and appropriate to speech and circumstances. Patient has linear and logical thinking, with no loose associations, tangential thought, thought blocking, concrete thinking, or any other signs of formal thought disorder. Patient denies suicidal and homicidal ideation, and reports tolerable auditory hallucinations and denies delusions. Patient appears to be a fair historian with poor judgement and fair insight into current condition. Patient has no apparent dysfunction in recent or remote memory noted, and no evidence of gross cognitive dysfunction noted at any point during the interview. - Time Spent With Patient Time Spent With Patient: 30 minutes, met with patient individually. - Pending Discharge Pending Discharge Within 24 Hours: No Pending Discharge Within 48 Hours: Yes Pending Discharge Date: 12/10/17 Pending Discharge Time: 11:00 ICD10 Worksheet Patient Problems: Problems Problem Status Onset Hallucinations Acute Schizoaffective disorder Acute Intermittent explosive disorder Acute Nicotine dependence Acute Noncompliance Acute Thoughts of violence Acute Schizophrenia Acute
--- NOTE | 2017-12-09 22:30 | ASMTBHDC ---
Notes Note: Notes: Discharge Planning: CC speaks to Dr. Juarez at [facility]. He notes, that he will be on the unit later today to speak with client regarding poss. discharge tomorrow to [facility], etc. CC spoke to client regarding this discharge plan and he stated, "that is fine with me." Client presents as less guarded, affect appropriate to situation while displaying a pleasant demeanor. DC plan for client to discharge to [facility] tomorrow between 9:30 and 10am. Date Signed: 12/09/2017 02:45 PM Electronically Signed By:Zhang Xiao
[2017-12-10] MEDS: LITHIUM CARBONATE ER 300 MG TAB PO SCH ×2 (07:30→08:37)
[2017-12-10] MEDS: risperiDONE 2 MG TAB PO SCH ×2 (07:30→08:38)
[2017-12-10] MEDS: OMEGA-3 FATTY ACIDS 1,000 MG CAP PO SCH ×2 (07:30→08:38)
--- NOTE | 2017-12-10 10:40 | ASMTBHDC ---
Notes Note: Notes: CC was notified that client's discharge plan has changed and will not be going to [facility] and instead "going back to his apartment & is slated to see Dr. Juarez later today at 2:30pm." [facility] staff to p/u client upon discharge, etc. CC called [facility] staff; no answer left detailed message with all [facility] Date Signed: 12/10/2017 10:39 AM Electronically Signed By:Zhang Xiao
[2017-12-10] MEDS: LORazepam 0.5 MG TAB PO PRN (10:54)
--- NOTE | 2017-12-10 13:56 | BDS ---
[f rep st] BEHAVIORAL HEALTH DISCHARGE SUMMARY REASON FOR ADMISSION: Per ED note dated 12/05/2017, at 1842, the patient is a 22-year-old male with history of schizoaffective disorder currently undergoing treatment who presents to emergency department with worsening symptoms. Patient is treated as an outpatient by the [facility] team. Patient is followed by Dr. Conn from [facility]. The patient reported he felt his symptoms were worsening and needed placement for inpatient treatment facility. He is currently under court order to receive medications and he is taking his medications. He states he hears voices that are "not friendly." He denies thoughts of wanting to harm himself at this time. For further information regarding reason for admission, please refer to ED note dated 2017, at 1842. The patient was admitted psychiatric hospitalization for safety , crisis stabilization, and medication management. ADMITTING DIAGNOSIS: Schizoaffective disorder. ADMISSION PHYSICAL EXAMINATION: The patient was seen for hospitalist H and P consult on 12/06/2017, at 1535. Please refer to the hospitalist's note. Patient was cleared medically for inpatient psychiatric hospitalization. ADMISSION LABORATORY DATA: CBC dated 12/05/2017, white blood cells elevated at 10.74, absolute eosinophils elevated at 0.79. Chemistry within normal limits. Lipid panel within normal limits, except for VLDL cholesterol elevated at 27. Toxicology positive for THC, negative for all other illicit substances and negative for alcohol. HOSPITAL COURSE: The prominent symptoms and behaviors while the patient was here were auditory command hallucinations. Target symptoms were auditory hallucinations. The treatment modalities utilized were as follows: Milieu and group therapy. The patient's outpatient psychotropic medications were continued and were tolerated with no report of side effects and with good response. The patient has improved considerably with no signs of psychiatric symptoms and no psychiatric symptoms expressed. The patient reports he has improved since his admission, and is no longer experiencing command hallucinations. States to be in stable condition and feels safe to discharge and contract for safety. Patient 's response to treatment has been good. There were no adverse or unexpected results to treatment. The patient was safe throughout his stay, active in treatment, engaged in groups, and was appropriate with staff. The treatment team 's consensus is the patient is in stable condition and is safe to discharge today. CONDITION AT DISCHARGE: Patient is in stable condition and is no longer a danger to self or others, and is not gravely disabled due to mental illness. Patient is no longer in need of inpatient level of care, and can be safely and effectively treated within the community. The patients level of risk at time of discharge is low based on the risk assessment below following this discharge summary. MSE: The patient is casually dressed and with good hygiene, and looks stated age. Patient is sitting, posture is upright, and position is relaxed. Patient appears awake, alert, and responds appropriately and reasonably during interview. Patient is engaged, relates well to interviewer, and emotional facial expression is appropriate to situation and changes appropriately with topic. Patient is cooperative, makes comfortable eye contact, and movements are voluntary, deliberate, coordinated, and smooth and even with no inappropriate movements. Patient makes laryngeal sounds effortlessly and shares conversation appropriately; pace of conversation is appropriate, and stream of talking is fluent; articulation is clear and understandable; word choice is effortless and appropriate for education level; completes sentences, occasionally pausing to think; rate and volume are appropriate for interview and setting. Patient reports mood as euthymic. Patients affect is stable with full variable range, congruent with mood, and appropriate to speech and circumstances. Patient has linear and logical thinking, with no loose associations, tangential thought, thought blocking, concrete thinking, or any other signs of formal thought disorder. Patient denies suicidal and homicidal ideation, and denies hallucinations and delusions. Patient appears to be a reliable historian with sound judgement and good insight into current condition. Patient has no apparent dysfunction in recent or remote memory noted , and no evidence of gross cognitive dysfunction noted at any point during the interview. DISCHARGE DIAGNOSIS: Schizoaffective disorder. DISCHARGE MEDICATIONS: The patient is to continue on the outpatient psychotropic medications. The patient reports he does not need prescriptions for his medications as he has prescriptions for the medications, and the patient was to continue risperidone 4 mg p.o. daily. Patient is currently on Invega Sustenna 150 mg IM q.28 days. The patient takes an omega-3 fatty acid 1000 mg capsule daily, lithium ER 1200 mg p.o. daily, Benadryl 50 mg p.o. q.i.d. , and acetaminophen 650 mg p.o. q.4 hours as needed. DISPOSITION: Patient is currently on a short-term certification and is followed by Dr. Conn, [facility] and stays at [facility]. Patient left the hospital today independently and voluntarily with the plan for the patient to return back to [facility] under the care of Radha padilla and Dr. Conn of [facility]. FOLLOWUP: wedding coordinator reports the appropriate outpatient follow-up services have been established and outpatient appointments have been scheduled. The patient received written instructions with times and dates of outpatient follow-up appointments. The following follow-up recommendations were provided to the patient at discharge: Continue psychotropic medications as prescribed and attend appointments as scheduled. Report any side effects to a psychiatric outpatient provider, a primary care provider, or other health acute care nurse practitioner. Address any questions or problems concerning the psychotropic medications with a psychiatric outpatient provider, a primary care provider, or other health acute care nurse practitioner. Contact [facility] or [facility], or go to the nearest emergency room, if you are ever a danger to yourself/others, or unable to care for yourself. As soon as possible, establish a routine medication management treatment with a psychiatric provider, establish routine therapy appointments, and follow-up with a primary care provider. LEGAL COURSE: Patient is currently on court ordered medications and a short- term certification under the care of Dr. Conn from [facility]. ATTITUDE AT TIME OF DISCHARGE: Attitude at time of discharge: The patients attitude was positive at time of discharge, and patient reports looking forward to discharging today. The patient reports he/she feels safe to discharge, is no longer a danger to himself or others, is in stable condition, and contracts for safety. Patient states he will continue medications as prescribed, and establish medication management treatment with an outpatient provider after discharge. Patient reports he understands the information that has been provided to him, and he understands, accepts, and agrees to psychotropic medications. Patient reports internal protective factors as the coping skills he has learned while hospitalized here, and he plans to continue to practice these coping skills after discharge. Patient reports external protective factors as family and friends. Patient describes looking forward to returning to independent living after discharge. PENDING LABORATORY/STUDIES: There were no pending labs or studies at time of discharge. CODE STATUS: There were no Advanced Directives on file and patient was full code during hospitalization. The following psychotropic medication treatment informed consent and recommendations were provided to the patient at time of discharge. Patient reports he understands, accepts, and agrees to the information that has been provided. PSYCHOTROPIC MEDICATION TREATMENT INFORMED CONSENT and RECOMMENDATIONS: Review nature of condition, diagnosis, and prognosis. Review nature and purpose of psychotropic medication treatment. Review type of psychotropic medications being prescribed. Review risk and benefits of psychotropic medication treatment. Review probable length of time will need to take medications. Review risk and benefits of not undergoing psychotropic medication treatment. Review alternative treatments to psychotropic medications. Review psychotropic medications contraindications, side effects, and importance of reporting any side effects to a psychiatric provider, primary care provider, or other health acute care nurse practitioner. Review importance of her asking a psychiatric provider or primary care provider any questions or problems concerning the psychotropic medications. Review safety plan and the importance to contact [facility] or [facility] , or go to the nearest emergency room, if ever a danger to yourself/others, or unable to care for yourself. Recommend upon discharge to establish routine medication management treatment with a psychiatric provider, establish routine therapy appointments, and follow-up with a primary care provider. Verify patient understands, accepts, and agrees to the information that has been provided. /[id number]
== END 2017-12-10 11:58 | DRG 885 ==
LOC: BBEH 12-06 01:05
PROVIDERS: ADMIT Psychiatry & Neurology Psychiatry; ATTEND Psychiatry & Neurology Psychiatry
DX: F25.8 Other schizoaffective disorders (principal); F12.90 Cannabis use, unspecified, uncomplicated; F17.210 Nicotine dependence, cigarettes, uncomplicated; Z72.89 Other problems related to lifestyle
CPT/HCPCS: 80305; G0480

== ENCOUNTER 2018-03-16 10:03 | Emergency (ER) | payer MEDICAID ==
--- NOTE | 2018-03-16 10:36 | EDPHY ---
H & P Time Seen by Provider: 03/16/18 10:34 HPI/ROS: CHIEF COMPLAINT: Vomiting and diarrhea HISTORY OF PRESENT ILLNESS: 22-year-old man presents with diarrhea for 3 days and vomiting for 2 days. He is at [facility] and recently started clozapine. Describes diarrhea and loose stools for 3 days, temperature a 101 degrees this weekend, vomiting for the last 2 days. Patient says to me that he does not have any abdominal pain, has mild nausea. No blood in his stool or in the vomit, no melena. No recent foreign travel. REVIEW OF SYSTEMS: Eye: no change in vision ENT: no sore throat Cardiac: no chest pain or syncope Pulmonary: no cough or SOB Abdomen: HPI Musculoskeletal: no back pain Skin: no rash Neuro: no headache Constitutional: HPI : no urinary symptoms A comprehensive 10 point review of systems is otherwise negative aside from elements mentioned in the history of present illness. PAST MEDICAL HISTORY: Includes bipolar disorder with psychotic features Social history: Here with embedded case manager, marijuana use, denies recent alcohol General Appearance: Alert and conversant, cooperative. Eyes: No scleral icterus. ENT, Mouth: Dry mucous membranes Respiratory: Normal respiratory effort, breath sounds equal, lungs are clear to auscultation. Cardiovascular: Regular rate and rhythm. Gastrointestinal: Abdomen is soft and non tender. Neurological: Alert, face symmetric, normal motor and sensory in extremities. Skin: Warm and dry, no rashes. Musculoskeletal: No peripheral edema. Psychiatric: Not agitated. Emergency Department course/MDM: Plan for CBC chemistry LFTs and lithium level, Zofran 4 mg IV and normal saline hydration for vomiting diarrhea and clinical dehydration with dry mucous membranes. 1118: Discussed with Dr. Navarro with patient's explicit permission. 1217: Feels better, likely gastroenteritis, stable for discharge. More likely that he has what the other resident has, does not have evidence of surgical abdominal process on evaluation. Smoking Status: Former smoker Constitutional: Initial Vital Signs Temperature (C) 36.4 C 03/16/18 10:13 Heart Rate 104 H 03/16/18 10:13 Respiratory Rate 17 03/16/18 10:13 Blood Pressure 133/80 H 03/16/18 10:13 O2 Sat (%) 92 03/16/18 10:13 O2 Delivery Mode Room Air Allergies/Adverse Reactions: cephalexin [From Keflex] Allergy (Verified 02/17/18 18:26) No Allergies [NKA] Allergy (Verified 12/05/17 18:04) Home Medications: Medication Instructions Recorded [place] Carbonate ER [Lithobid 300 1,200 mg PO DAILY 12/06/17 mg (*)] [place]-3 Fatty Acids [Fish Oil 1000 1,000 mg PO DAILY 12/06/17 mg (*)] Benztropine Mesylate [Cogentin] 1 mg PO DAILY 02/18/18 Paliperidone Palmitate [Invega mg SC Q21D 02/18/18 Sustenna (*)] Disulfiram [Antabuse 250 MG (*)] 250 mg PO DAILY tab 02/23/18 Melatonin [Melatonin 3 MG (*)] 3 - 6 mg PO HS PRN tab 02/23/18 Paliperidone [Invega 3mg ER (*)] 3 mg PO DAILY tab.er 02/23/18 Paliperidone [Invega 9mg ER (*)] 9 mg PO DAILY tab.er 02/23/18 Propranolol HCl [Inderal 20mg (*)] 20 mg PO DAILY tab 02/23/18 Clonidine 03/16/18 LaMICtal 03/16/18 Medical Decision Making Differential Diagnosis: Differential considered including but not limited to gastroenteritis, medication side effect, GI bleed, surgical abdominal process. - Data Points Laboratory Results: Laboratory Results 03/16/18 10:40 03/16/18 10:40 03/16/18 03/16/18 10:40 10:40 WBC 12.85 10^3/uL H 10^3/uL (3.80-9.50) RBC 5.23 10^6/uL 10^6/uL (4.40-6.38) Hgb 16.6 g/dL g/dL (13.7-17.5) Hct 45.9 % % (40.0-51.0) MCV 87.8 fL fL (81.5-99.8) MCH 31.7 pg pg (27.9-34.1) MCHC 36.2 g/dL g/dL (32.4-36.7) RDW 12.1 % % (11.5-15.2) Plt Count 252 10^3/uL 10^3/uL (150-400) MPV 8.5 fL L fL (8.7-11.7) Neut % (Auto) 63.2 % % (39.3-74.2) Lymph % (Auto) 12.0 % L % (15.0-45.0) Wolfe % (Auto) 9.0 % % (4.5-13.0) Eos % (Auto) 15.1 % H % (0.6-7.6) Baso % (Auto) 0.2 % L % (0.3-1.7) Nucleat RBC Rel Count 0.0 % % (0.0-0.2) Absolute Neuts (auto) 8.12 10^3/uL H 10^3/uL (1.70-6.50) Absolute Lymphs (auto) 1.54 10^3/uL 10^3/uL (1.00-3.00) Absolute Monos (auto) 1.16 10^3/uL H 10^3/uL (0.30-0.80) Absolute Eos (auto) 1.94 10^3/uL H 10^3/uL (0.03-0.40) Absolute Basos (auto) 0.02 10^3/uL 10^3/uL (0.02-0.10) Absolute Nucleated RBC 0.00 10^3/uL 10^3/uL (0-0.01) Immature Gran % 0.5 % % (0.0-1.1) Immature Gran # 0.07 10^3/uL 10^3/uL (0.00-0.10) Sodium 138 mEq/L mEq/L (135-145) Potassium 3.6 mEq/L mEq/L (3.3-5.0) Chloride 101 mEq/L mEq/L (97-110) Carbon Dioxide 25 mEq/l mEq/l (22-31) Anion Gap 12 mEq/L mEq/L (8-16) BUN 3 mg/dL L mg/dL (7-23) Creatinine 0.9 mg/dL mg/dL (0.7-1.3) Estimated GFR > 60 Glucose 116 mg/dL H mg/dL (70-100) Calcium 9.6 mg/dL mg/dL (8.5-10.4) Total Bilirubin 0.5 mg/dL mg/dL (0.1-1.4) Conjugated Bilirubin 0.2 mg/dL mg/dL (0.0-0.5) Unconjugated Bilirubin 0.3 mg/dL mg/dL (0.0-1.1) AST 15 IU/L L IU/L (17-59) ALT 28 IU/L IU/L (21-72) Alkaline Phosphatase 84 IU/L IU/L (38-126) Total Protein 7.0 g/dL g/dL (6.3-8.2) Albumin 4.0 g/dL g/dL (3.5-5.0) Bowler 0.8 mEq/L mEq/L (0.6-1.2) Medications Given: Discontinued Medications Sodium Chloride (Ns) 1,000 mls @ 0 mls/hr IV EDNOW ONE; Wide Open PRN Reason: Protocol Stop: 03/16/18 10:46 Last Admin: 03/16/18 10:50 Dose: 1,000 mls Sodium Chloride (Ns) 1,000 mls @ 0 mls/hr IV EDNOW ONE; Wide Open PRN Reason: Protocol Stop: 03/16/18 11:36 Last Admin: 03/16/18 11:47 Dose: 1,000 mls Ondansetron HCl (Zofran) 4 mg IVP EDNOW ONE Stop: 03/16/18 10:46 Last Admin: 03/16/18 10:50 Dose: 4 mg Departure - Departure Disposition: Home, Routine, Self-Care Clinical Impression: Vomiting and diarrhea Condition: Good Instructions: Dehydration (ED) Referrals: Lianet Navarro MD [Retired Resigned] - As per Instructions
[2018-03-16] MEDS ORDERED: ONDANSETRON 4 MG/2 ML VIAL IVP ONE (10:45)
[2018-03-16] MEDS ORDERED: NS 1,000 ML IV ONE ×2 (10:45→11:35)
[2018-03-16 10:52] LABS: PLATELET COUNT 252 10^3/uL (150-400)
[2018-03-16 12:25] VITALS: BP 128/77
== END 2018-03-16 12:55 | disposition home or self-care (01) ==
DX: R11.10 Vomiting, unspecified (principal); R19.7 Diarrhea, unspecified; E86.9 Volume depletion, unspecified
CPT/HCPCS: 96374; J2405

== ENCOUNTER 2018-04-28 19:59 | Emergency (ER) | payer MEDICAID ==
--- NOTE | 2018-04-28 20:39 | EDPHY ---
H & P Stated Complaint: "no BM for 3 weeks" Time Seen by Provider: 04/28/18 20:14 HPI/ROS: CHIEF COMPLAINT: "I haven't taken a shit in 3 weeks" HISTORY OF PRESENT ILLNESS: 22-year-old male from [facility] complaining of constipation for the past 3 weeks with abdominal distension. Intermittent abdominal cramping, currently asymptomatic. Able to tolerate oral intake, ate earlier today which she tolerated well. He has attempted to manually disimpact himself unsuccessfully. States that he has been able to palpate a hard piece of stool in his rectal vault. No back pain. No nausea or vomiting. No dyspnea. No trauma. No lower extremity radiculopathy. No back pain. PRIMARY CARE PROVIDER: REVIEW OF SYSTEMS: 10 systems reviewed and negative with the exception of the elements mentioned in the history of present illness PAST MEDICAL & SURGICAL HISTORY: No history of abdominal surgeries SOCIAL HISTORY: Lives at [facility]. Denies drug or alcohol use. PHYSICAL EXAM (Prior to examination, patient consented to physical exam, hands were washed and my usual and customary physical exam procedures followed) 1) GENERAL: Well-developed, well-nourished, alert and oriented. Appears to be in no acute distress. 2) HEAD: Normocephalic, atraumatic 3) HEENT: Pupils equal, round, reactive to light bilaterally. Sclera anicteric. 4) NECK: Full range of motion, no meningeal signs. 5) LUNGS: Clear auscultation bilaterally, no wheezes, no rhonchi, no retractions. 6) HEART: Regular rate and rhythm, no murmur, no heave, no gallop. 7) ABDOMEN: Mild distension. No guarding, no rebound, no focal tenderness, negative McBurney's, negative Santana's, negative Rovsing's, negative peritoneal sign 8) MUSCULOSKELETAL: Moving all extremities, no focal areas of tenderness, no obvious trauma. No peripheral edema or discoloration. 9) BACK: No CVA tenderness, no midline vertebral tenderness, no fluctuance, no step-off, no obvious trauma, no visual or palpable abnormality. Patella and Achilles reflexes intact to bilateral strength 5/5 10) SKIN: No rash, no petechiae. 11) Psychiatric: Patient is oriented X 3, there is no agitation. 12) RECTAL (with cj Amin at bedside): Normal rectal tone, large piece of hard stool in rectal vault. DIFFERENTIAL DIAGNOSIS: In no particular order including but not limited to bowel obstruction, constipation, cauda equina - Personal History Current Tetanus/Diphtheria Vaccine: Yes - Medical/Surgical History Hx Asthma: No Hx Chronic Respiratory Disease: No Hx Diabetes: No Hx Cardiac Disease: No Hx Renal Disease: No Hx Cirrhosis: No Hx Alcoholism: No Hx HIV/AIDS: No Hx Splenectomy or Spleen Trauma: No Other PMH: schizoaffective, alcohol and marijuana use,. bipolar - Social History Smoking Status: Heavy smoker Constitutional: Initial Vital Signs Temperature (C) 36.5 C 04/28/18 20:04 Heart Rate 100 04/28/18 20:04 Respiratory Rate 18 04/28/18 20:04 Blood Pressure 129/82 H 04/28/18 20:04 O2 Sat (%) 95 04/28/18 20:04 O2 Delivery Mode Room Air Allergies/Adverse Reactions: cephalexin [From Keflex] Allergy (Verified 04/28/18 20:06) Home Medications: Medication Instructions Recorded [place] Carbonate ER [Lithobid 300 1,200 mg PO DAILY 12/06/17 mg (*)] [place]-3 Fatty Acids [Fish Oil 1000 1,000 mg PO DAILY 12/06/17 mg (*)] Benztropine Mesylate [Cogentin] 1 mg PO DAILY 02/18/18 Paliperidone Palmitate [Invega mg SC Q21D 02/18/18 Sustenna (*)] Disulfiram [Antabuse 250 MG (*)] 250 mg PO DAILY tab 02/23/18 Melatonin [Melatonin 3 MG (*)] 3 - 6 mg PO HS PRN tab 02/23/18 Paliperidone [Invega 3mg ER (*)] 3 mg PO DAILY tab.er 02/23/18 Paliperidone [Invega 9mg ER (*)] 9 mg PO DAILY tab.er 02/23/18 Clonidine 03/16/18 LaMICtal 03/16/18 Ativan 04/28/18 Klonopin 04/28/18 Peg 3350/Na Sulf,Bicarb,Cl/KCl 1,000 ml PO ONCE #4000 ml 04/28/18 [Golytely (RX)] Seroquel 04/28/18 Zyprexa 04/28/18 Medical Decision Making ED Course/Re-evaluation: 8:38 p.m.: Patient consented to digital rectal examination. I attempted manual disimpaction however patient requested I removed my finger and he did not allow me to perform disimpaction. He agrees to soapsuds enema. 9:03 p.m.: Soapsuds enema placed in the emergency department by nursing staff. Patient had positive bowel movement. He is requesting to leave at this time. His abdomen is soft no guarding no rebound. Doubt acute surgical surgical abdominal pathology. Doubt cauda equina. Doubt bowel obstruction. Given prescription for GoLYTELY , given usual and customary precautions. I saw this patient independently based on established practice protocols. Care of patient under supervision of secondary supervising physician Dr Mireles with whom I discussed case. Departure - Departure Disposition: Home, Routine, Self-Care Clinical Impression: Constipation Qualifiers: Constipation type: unspecified constipation type Qualified Code(s): K59.00 - Constipation, unspecified Condition: Good Instructions: Constipation (ED) Referrals: Live Harvey MD [Medical Doctor] - 2-3 days, call for appt. Prescriptions: Peg 3350/Na Sulf,Bicarb,Cl/KCl [Golytely (RX)] 1,000 ml PO ONCE #4000 ml
[2018-04-28 21:13] VITALS: BP 126/83
== END 2018-04-28 21:12 | disposition home or self-care (01) ==
DX: K59.00 Constipation, unspecified (principal); F31.9 Bipolar disorder, unspecified; F25.9 Schizoaffective disorder, unspecified; F17.200 Nicotine dependence, unspecified, uncomplicated